=== PATIENT | male | born 1945 | race Caucasian/White ===

== ENCOUNTER 2017-11-24 09:26 | Outpatient (RCR) | payer MEDICARE, SELFPAY ==
[2017-11-24 10:19] LABS: International Normalized Ratio 2.2; Prothrombin Time (Protime)PT. 23.9 SECONDS (11.7-14.9)
== END 2017-11-24 15:00 | disposition home or self-care (01) ==
LOC: MTLAB 09:26
PROVIDERS: Family Provider Family Medicine; PCP Family Medicine; Visit Provider Internal Medicine Cardiovascular Disease
DX: I48.1 Persistent atrial fibrillation (principal); Z79.01 Long term (current) use of anticoagulants
CPT/HCPCS: 36415; 85610

== ENCOUNTER 2018-01-08 11:58 | Outpatient (RCR) | payer MEDICARE, SELFPAY ==
[2018-01-08 13:53] LABS: International Normalized Ratio 2.4; Prothrombin Time (Protime)PT. 26.3 SECONDS (11.7-14.9)
== END 2018-01-08 12:00 | disposition home or self-care (01) ==
LOC: MTLAB 11:58
PROVIDERS: Family Provider Family Medicine; PCP Family Medicine; Visit Provider Internal Medicine Cardiovascular Disease
DX: I48.1 Persistent atrial fibrillation (principal); Z79.01 Long term (current) use of anticoagulants
CPT/HCPCS: 36415; 85610

== ENCOUNTER → 2018-01-24 10:05 | Outpatient (CLI) | payer MEDICARE, SELFPAY ==
[2018-01-24 12:48] LABS: T4 Total, Thyroxin 8.4 ug/dL (4.5-12.1); Thyroid Stim Hormone (TSH) 3.74 uIU/mL (0.358-3.74)
== END ==
PROVIDERS: Family Provider Family Medicine; PCP Family Medicine; Visit Provider Family Medicine
DX: E03.9 Hypothyroidism, unspecified (principal)
CPT/HCPCS: 36415; 84436; 84443

== ENCOUNTER → 2018-01-29 12:58 | Outpatient (CLI) | payer MEDICARE, SELFPAY ==
--- NOTE | 2018-01-29 12:59 | ECHOD_ITS ---
Reason For Study: CAD/ASHD Procedure This was a 2D Doppler, Color Flow transthoracic echocardiogram. Exam performed in department. Left Ventricle Normal LV size. Mild concentric left ventricular hypertrophy. Left ventricular systolic function is normal. The estimated ejection fraction is 55 %. No regional wall motion abnormalities noted. Right Ventricle Normal RV size. Normal systolic function. Atria The left atrium is mildly enlarged. Normal right atrium. Mitral Valve Normal mitral valve. Mild (1+) eccentric mitral valve insufficiency. Tricuspid Valve Normal tricuspid valve. Mild (1+) tricuspid valve insufficiency. Pulmonary artery systolic pressure is 38 mmHg. Aortic Valve Trisinus/trileaflet aortic valve. Mild focal aortic valve calcification. Pulmonic Valve Normal pulmonic valve. Great Vessels Normal aortic root. The pulmonary artery is normal size. Normal inferior vena cava. Pericardium/Pleural No pericardial effusion. MMode/2D Measurements & Calculations LVIDd: 3.8 cm IVSd: 1.2 cm Ao root diam: 3.2 cm LVIDs: 2.5 cm LVPWd: 1.5 cm RVDd: 2.9 cm FS: 34.5 % LAV(MOD-bp): 61.4 ml EDV(MOD-sp4): 92.6 ml SV(MOD-sp4): 55.5 ml LAV(MOD-bp) Indexed: 30.7 ml/m2 ESV(MOD-sp4): 37.2 ml LAV(MOD-sp2): 51.8 ml EF(MOD-sp4): 59.9 % LAV(MOD-sp4): 69.4 ml LA A4 area: 21.9 cm2 RA A4 area: 12.0 cm2 Doppler Measurements & Calculations MV E max meagan: 115.1 cm/sec Ao V2 max: 154.2 cm/sec LV V1 max: 80.8 cm/sec Ao max P.5 mmHg LV V1 max P.6 mmHg PA V2 max: 93.6 cm/sec TR max meagan: 296.4 cm/sec TR max P.1 mmHg Interpretation Summary Normal LV size. Mild concentric left ventricular hypertrophy. Left ventricular systolic function is normal. The estimated ejection fraction is 55 %. Mild (1+) tricuspid valve insufficiency. Pulmonary artery systolic pressure is 38 mmHg. Mild focal aortic valve calcification. Ordering Physician: Ryan Zelaya Referring Physician: Ryan Zelaya Performed By: Antonietta Beltran RDCS
== END ==
PROVIDERS: Family Provider Family Medicine; PCP Family Medicine; Visit Provider Internal Medicine Cardiovascular Disease
DX: I25.10 Atherosclerotic heart disease of native coronary artery without angina pectoris (principal); I48.2 Chronic atrial fibrillation
CPT/HCPCS: 93225; 93226; 93306

== ENCOUNTER 2018-02-14 08:42 | Outpatient (RCR) | payer MEDICARE, SELFPAY ==
[2018-02-14 10:23] LABS: International Normalized Ratio 2.1; Prothrombin Time (Protime)PT. 23.5 SECONDS (11.7-14.9)
== END 2018-02-14 09:00 | disposition home or self-care (01) ==
LOC: MTLAB 08:42
PROVIDERS: Family Provider Family Medicine; PCP Family Medicine; Visit Provider Internal Medicine Cardiovascular Disease
DX: I48.2 Chronic atrial fibrillation (principal); Z79.01 Long term (current) use of anticoagulants
CPT/HCPCS: 36415; 85610

== ENCOUNTER 2018-03-26 10:57 | Outpatient (RCR) | payer MEDICARE, SELFPAY ==
--- NOTE | 2018-03-26 10:57 | DT_ITS ---
This patient was seen during an EMR downtime March 19, 2018 - March 26, 2018. This patient may have a combination of paper and electronic documentation or all paper documentation. All documentation is viewable within the e-chart portion of [id number] for each patient visit.
[2018-03-26 12:34] LABS: International Normalized Ratio 2.5; Prothrombin Time (Protime)PT. 27.1 SECONDS (11.7-14.9)
== END 2018-03-26 12:00 | disposition home or self-care (01) ==
LOC: MTLAB 10:57
PROVIDERS: Family Provider Family Medicine; PCP Family Medicine; Visit Provider Internal Medicine Cardiovascular Disease
DX: I48.91 Unspecified atrial fibrillation (principal)
CPT/HCPCS: 36415; 85610

== ENCOUNTER 2018-04-20 07:16 | Outpatient (RCR) | payer MEDICARE, SELFPAY ==
[2018-04-20 10:14] LABS: International Normalized Ratio 2.6; Prothrombin Time (Protime)PT. 27.8 SECONDS (11.7-14.9)
== END 2018-04-20 09:00 ==
LOC: MTLAB 07:16
PROVIDERS: Family Provider Family Medicine; PCP Family Medicine; Visit Provider Internal Medicine Cardiovascular Disease
DX: I48.1 Persistent atrial fibrillation (principal)
CPT/HCPCS: 36415; 85610

== ENCOUNTER → 2018-05-16 08:33 | Outpatient (CLI) | payer MEDICARE, SELFPAY ==
[2018-05-16 10:35] LABS: International Normalized Ratio 2.3
== END ==
PROVIDERS: Family Provider Family Medicine; PCP Family Medicine; Visit Provider Internal Medicine Cardiovascular Disease
DX: I48.2 Chronic atrial fibrillation (principal); Z79.01 Long term (current) use of anticoagulants
CPT/HCPCS: 36415; 85610

== ENCOUNTER → 2018-06-07 12:13 | Outpatient (CLI) | payer MEDICARE, SELFPAY ==
[2018-06-07 13:51] LABS: Hematocrit 46.7 % (40-54); Hemoglobin 16.2 g/dl (13.0-16.5); Mean Corp Hgb Conc 34.7 g/gl (32-36); Mean Corpuscular Hgb 34.2 pg (27.0-32.0); Mean Corpuscular Volume 98.7 fL (80-94); Mean Platelet Vol. 10.7 fl (6.2-12.0); Platelet Count 122 K/mm3 (150-450); RBC Distribution Width CV 14.4 % (11.6-14.6); RBC Distribution Width SD 51.8 fl (35.1-43.9); Red Blood Count 4.73 M/mm3 (4.6-6.2); Scan Indicated on CBC? Y/N NO; White Blood Count 4.8 K/mm3 (4.4-11.0)
[2018-06-07 14:18] LABS: Homocysteine 9.6 umol/L (3.2-10.7)
[2018-06-07 14:19] LABS: ALB/GLOB Ratio 1.2 RATIO (0.9-2.4); AST(SGOT) 28 U/L (15-37); Alanine Aminotransfer ALT/SGPT 29 U/L (16-61); Albumin, Serum 3.6 g/dL (3.2-5.0); Alkaline Phosphatase 40 U/L (45-117); Anion Gap 10 (5-15); BUN 17 mg/dL (7-18); BUN/Creat Ratio 12.8 RATIO (10-20); CRP < 2.90 mg/L (0.0-3.0); Calcium,Total 8.3 mg/dL (8.5-10.1); Chloride 103 mmol/L (98-107); Cholesterol 174 mg/dL (200); Creatinine, Serum 1.33 mg/dL (0.70-1.30); EST Glomerular Filtration Rate 56 mL/min (>60); Est Glom Filt Rate - Afr Amer 68 mL/min (>60); Globulin 3.1 g/dL (2.2-4.2); Glucose 82 mg/dL (74-106); High Density Lipoprotein 45 mg/dL; PSA,Total - Annual Screen 0.46 ng/mL (0.00-4.00); Potassium 4.2 mmol/L (3.5-5.1); Prolactin 6.1 ng/mL; Protein, Total 6.7 g/dL (6.4-8.2); Sodium Level 135 mmol/L (136-145); T4 Total, Thyroxin 6.9 ug/dL (4.5-12.1); Thyroid Stim Hormone (TSH) 1.93 uIU/mL (0.358-3.74); Triglycerides 62 mg/dL; Very Low Density Lipoprotein 12 mg/dL (5-40)
[2018-06-08 10:21] LABS: Progesterone Level 1.34 ng/mL (See Comment); T3 Total - Triiodothyronine 0.64 ng/mL (0.6-1.81); Vitamin D,25 Hydroxy 30.5 ng/mL (29.95-100.01)
[2018-06-11 22:08] LABS: DHEA Sulfate 184.5 ug/dL (30.9-295.6); Estrogen, Total, Serum 70 pg/mL (40-115)
[2018-06-12 10:32] LABS: Serotonin, Serum 118 ng/mL (21-321)
== END ==
LOC: MTLAB 13:15 → LAB 13:15
PROVIDERS: Family Provider Family Medicine; PCP Family Medicine
DX: E29.1 Testicular hypofunction (principal); E56.9 Vitamin deficiency, unspecified; E03.9 Hypothyroidism, unspecified; Z12.5 Encounter for screening for malignant neoplasm of prostate
CPT/HCPCS: 36415; 80053; 80061; 82306; 82533; 82627; 82672; 83090; 84144; 84146; 84153; 84260; 84403; 84436; 84443; 84480; 85027; 86140; 82626; G0103

== ENCOUNTER 2018-06-20 10:18 | Outpatient (RCR) | payer MEDICARE, SELFPAY ==
[2018-06-20 12:43] LABS: International Normalized Ratio 2.7; Prothrombin Time (Protime)PT. 28.9 SECONDS (11.7-14.9)
== END 2018-06-20 11:00 | disposition home or self-care (01) ==
LOC: MTLAB 10:18
PROVIDERS: Family Provider Family Medicine; PCP Family Medicine; Visit Provider Internal Medicine Cardiovascular Disease
DX: I48.1 Persistent atrial fibrillation (principal)
CPT/HCPCS: 36415; 85610

== ENCOUNTER 2018-07-18 09:32 | Outpatient (RCR) | payer MEDICARE, SELFPAY | END 2018-07-18 11:00 | disposition home or self-care (01) | LOC: MTLAB 09:32 | PROVIDERS: Family Provider Family Medicine; PCP Family Medicine; Referring Provider Internal Medicine Cardiovascular Disease; Visit Provider Internal Medicine Cardiovascular Disease | DX: I48.1 Persistent atrial fibrillation (principal) | CPT/HCPCS: 36415; 85610 ==

== ENCOUNTER 2018-08-22 09:18 | Outpatient (RCR) | payer MEDICARE, SELFPAY ==
[2018-08-22 10:19] LABS: International Normalized Ratio 2.7; Prothrombin Time (Protime)PT. 28.8 SECONDS (11.7-14.9)
== END 2018-08-22 10:00 | disposition home or self-care (01) ==
LOC: MTLAB 09:18
PROVIDERS: Family Provider Family Medicine; PCP Family Medicine; Referring Provider Internal Medicine Cardiovascular Disease; Visit Provider Internal Medicine Cardiovascular Disease
DX: I48.1 Persistent atrial fibrillation (principal)
CPT/HCPCS: 36415; 85610

== ENCOUNTER 2018-10-01 09:46 | Outpatient (RCR) | payer MEDICARE, SELFPAY ==
[2018-10-01 12:17] LABS: International Normalized Ratio 1.9; Prothrombin Time (Protime)PT. 21.5 SECONDS (11.7-14.9)
--- OUTSIDE RECORDS SUMMARY | 2019-01-02 22:12 | XMS RPT_ITS ---
:1945 Author Organization [place] Support Name Relationship Address Phone JUSTIN THOMAS Unavailable [address] + [place] [address] KIARA MODESTO K Unavailable Unavailable + R Unavailable Unavailable Unavailable JUSTIN THOMAS Unavailable [address] + [place] [address] KIARA, MODESTO K Unavailable Unavailable + R Unavailable Unavailable Unavailable JUSTIN THOMAS Unavailable [address] + [place] [address] KIARA MODESTO K Unavailable Unavailable + R Unavailable Unavailable Unavailable JUSTIN THOMAS Unavailable [address] + [place] [address] KIARA MODESTO K Unavailable Unavailable + R Unavailable Unavailable Unavailable JUSTIN THOMAS Unavailable [address] + [place] [address] KIARA MODESTO K Unavailable Unavailable + R Unavailable Unavailable Unavailable JUSTIN THOMAS Unavailable [address] + [place] [address] KIARA MODESTO K Unavailable Unavailable + R Unavailable Unavailable Unavailable JUSTIN THOMAS Unavailable [address] + [place] [address] KIARA, MODESTO K Unavailable Unavailable + R Unavailable Unavailable Unavailable JUSTIN THOMAS Unavailable [address] + [place] [address] R Unavailable Unavailable Unavailable THOMAS, JUSTIN Unavailable [address] + [place] [address] MODESTO CRAIG Unavailable Unavailable + R Unavailable Unavailable Unavailable THOMAS, JUSTIN Unavailable [address] + [place] [address] R Unavailable Unavailable Unavailable THOMAS, JUSTIN Unavailable [address] + [place] [address] R Unavailable Unavailable Unavailable THOMAS, JUSTIN Unavailable [address] + [place] [address] R Unavailable Unavailable Unavailable THOMAS, JUSTIN Unavailable [address] + [place] [address] R Unavailable Unavailable Unavailable THOMAS, JUSTIN Unavailable [address] + [place] [address] R Unavailable Unavailable Unavailable THOMAS, JUSTIN Unavailable [address] + [place] [address] R Unavailable Unavailable Unavailable THOMAS, JUSTIN Unavailable [address] + [place] [address] R Unavailable Unavailable Unavailable Care Team Providers Name Role Phone Garcia, Ryan Attending Unavailable Garcia, Galata Referring Unavailable Jolliff, Dorinda Primary Care Unavailable Garcia, Galata Attending Unavailable Garcia, Ryan Referring Unavailable Jolliff, Dorinda Primary Care Unavailable Garcia, Ryan Attending Unavailable Garcia, Galata Referring Unavailable Jolliff, Dorinda Primary Care Unavailable Garcia, Ryan Attending Unavailable Garcia, Ryan Referring Unavailable Jolliff, Dorinda Primary Care Unavailable Garcia, Galata Attending Unavailable Garcia, Galata Referring Unavailable Jolliff, Dorinda Primary Care Unavailable Jolliff, Dorinda Attending Unavailable Jolliff, Dorinda Primary Care Unavailable Garcia, Ryan Attending Unavailable Garcia, Ryan Attending Unavailable Garcia, Galata Referring Unavailable Jolliff, Dorinda Primary Care Unavailable Anish Limon Attending Unavailable Jolliff, Dorinda Referring Unavailable Garcia, Galata Attending Unavailable Garcia, Galata Referring Unavailable Jolliff, Dorinda Primary Care Unavailable Garcia, Ryan Attending Unavailable Garcia, Galata Referring Unavailable Jolliff, Dorinda Primary Care Unavailable Garcia, Ryan Attending Unavailable Garcia, Galata Referring Unavailable Jolliff, Dorinda Primary Care Unavailable DORINDA ROSE Attending Unavailable DORINDA ROSE Referring Unavailable Jolliff, Dorinda Primary Care Unavailable Garcia, Galata Attending Unavailable Garcia, Ryan Referring Unavailable Jolliff, Dorinda Primary Care Unavailable Garcia, Galata Attending Unavailable Garcia, Ryan Referring Unavailable Jolliff, Dorinda Primary Care Unavailable Garcia, Ryan Attending Unavailable Garcia, Galata Referring Unavailable Jolliff, Dorinda Primary Care Unavailable NETZLEY, GALE G Referring Unavailable CRUZ, JANELL (LOG STACKER OPERATOR) Attending Unavailable JOLLIFF, DORINDA SILVIANO Referring Unavailable NETZLEY, GALE G Referring Unavailable Jolliff, Dorinda Primary Care Unavailable NETZLEY, GALE G Referring Unavailable Jolliff, Dorinda Primary Care Unavailable CRUZDEEPAJANELL L Attending Unavailable Jolliff, Dorinda Referring Unavailable Jolliff, Dorinda Primary Care Unavailable PROBLEMS PROBLEMS DATE TYPE CONDITION / CODE ATTENDING STATUS SOURCE 10/15/2018 Unknown I48.1 - Persistent Garcia, Ryan Active [facility] / I48.1(ICD-10) Hospital Repository 10/15/2018 Unknown I48.91 - Unspecified Garcia, Galata Active [facility] / I48.91(ICD-10) Hospital Repository 07/06/2018 Unknown 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 / Community E29.1(ICD-10) Hospital Repository 04/13/2018 Unknown I48.2 - Chronic Garcia, Galata Active [facility] fibrillation [facility] / I48.2(ICD-10) Hospital Repository 03/14/2018 Active Other specified ANTHONY, Active [facility] postprocedural JANELL (LOG STACKER OPERATOR) Clinic Other states / [place] Z98.890(ICD-10) Repository 03/14/2018 Active Encounter for ANTHONY, Active [facility] screening for other JANELL (LOG STACKER OPERATOR) Clinic Other disorder / [place] Z13.89(ICD-10) Repository 03/14/2018 Active Encounter for ANTHONY Active [facility] screening for JANELL (LOG STACKER OPERATOR) Clinic Other cardiovascular [place] disorders / Repository Z13.6(ICD-10) 02/27/2018 Active Occlusion and NA Active [facility] stenosis of right Clinic Other carotid artery / [place] I65.21(ICD-10) Repository 02/27/2018 Admitting Unknown / NA Active [facility] UNK(Unknown) [facility] Repository 03/15/2018 Unknown 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 [address] [facility] [place], [place], [id number] PROTHROMBIN TIME W/INR Collected: 10/01/2018 Status: F Source: [place] 9:53 AM [facility] REPOSITORY TYPE CODE TESTS RESULT OUT OF RANGE REFERENCE UNITS LAB L300.4150 11.7-14.9 SECONDS High PROTIME 21.5 LAB L300.4200 Normal INR 1.9 Performed By: #### L300.3900 #### [facility] [facility] [place], [place], [address] PROTHROMBIN TIME W/INR Collected: 08/22/2018 Status: F Source: [place] 9:21 AM [facility] REPOSITORY TYPE CODE TESTS RESULT OUT OF RANGE REFERENCE UNITS LAB L300.4150 11.7-14.9 SECONDS High PROTIME 28.8 LAB L300.4200 Normal INR 2.7 Performed By: #### L300.3900 #### [facility] [address] [facility] [place], [place], [address] PROTHROMBIN TIME W/INR Collected: 07/18/2018 Status: F Source: [place] 9:36 AM [facility] REPOSITORY TYPE CODE TESTS RESULT OUT OF RANGE REFERENCE UNITS LAB L300.4150 11.7-14.9 SECONDS High PROTIME 23.0 LAB L300.4200 Normal INR 2.0 Performed By: #### L300.3900 #### [facility] [address] [place], [place], [address] PROTHROMBIN TIME W/INR Collected: 06/20/2018 Status: F Source: [place] 10:25 AM [facility] REPOSITORY TYPE CODE TESTS RESULT OUT OF RANGE REFERENCE UNITS LAB L300.4150 11.7-14.9 SECONDS High PROTIME 28.9 LAB L300.4200 Normal INR 2.7 Performed By: #### L300.3900 #### [facility] [address] [place], [address] CBC-COMPLETE BLOOD CNT Collected: 06/07/2018 Status: F Source: [place] NO DIFF 12:17 PM [facility] REPOSITORY TYPE CODE TESTS RESULT OUT OF RANGE REFERENCE UNITS LAB L100.1000 4.4-11.0 K/mm3 Normal WBC 4.8 LAB L100.1200 4.6-6.2 M/mm3 Normal RBC 4.73 LAB L100.1300 13.0-16.5 g/dl Normal HGB 16.2 LAB L100.1400 40-54 % Normal HCT 46.7 LAB L100.1500 80-94 fL High MCV 98.7 LAB L100.1600 27.0-32.0 pg High MCH 34.2 LAB L100.1700 32-36 g/gl Normal MCHC 34.7 LAB L100.1810 11.6-14.6 % Normal RDW CV 14.4 LAB L100.1820 35.1-43.9 fl High RDW SD 51.8 LAB L100.1900 150-450 K/mm3 Low PLT 122 LAB L100.2000 6.2-12.0 fl Normal MPV 10.7 Performed By: #### L100.0500 #### [facility] [address] [place], [place], [address] HOMOCYSTEINE Collected: 06/07/2018 Status: F Source: [place] 12:17 PM [facility] REPOSITORY TYPE CODE TESTS RESULT OUT OF REFERENCE UNITS RANGE LAB L503.8001 3.2-10.7 umol/L HOMOCYSTEINE Normal 9.6 Performed By: #### L503.8001 #### [facility] [address] [place], [address] COMPREHENSIVE METABOLIC Collected: 06/07/2018 Status: F Source: [place] CONRAD 12:17 PM [facility] REPOSITORY TYPE CODE TESTS RESULT OUT OF RANGE REFERENCE UNITS LAB L501.0100 74-106 mg/dL Normal GLU 82 Result Comment: Please note revised GLUCOSE reference range effective 2017. LAB L501.1000 7-18 mg/dL Normal BUN 17 LAB L501.1100 0.70-1.30 mg/dL High CREAT,SERUM 1.33 Result Comment: The validity of the calculated GFR AND GFRAA in patients over 70 years has not been determined. Clinical correlation is essential. LAB L501.1110 >60 mL/min Low EST GFR 56 Result Comment: Non- GFR Calc LAB L501.1115 >60 mL/min Normal EST GFR - AA 68 Result Comment: GFR Calc LAB L501.1300 10-20 RATIO Normal BUN/CRE 12.8 LAB L501.1500 6.4-8.2 g/dL T Normal PROT 6.7 LAB L501.1800 3.2-5.0 g/dL Normal ALB 3.6 LAB L501.1950 2.2-4.2 g/dL Normal GLOB 3.1 LAB L501.2000 0.9-2.4 RATIO Normal A/G 1.2 LAB L501.2200 8.5-10.1 mg/dL Low CA 8.3 LAB L501.4100 15-37 U/L Normal AST 28 LAB L501.4305 45-117 U/L Low ALK P 40 LAB L501.4405 16-61 U/L Normal ALT 29 LAB L501.4600 0.20-1.00 mg/dL T Normal BILI 0.60 LAB L501.5300 136-145 mmol/L Low NA 135 LAB L501.5600 3.5-5.1 mmol/L K Normal 4.2 LAB L501.5900 98-107 mmol/L CL Normal 103 LAB L501.6100 21.0-32.0 mmol/L Normal CO2 22.0 LAB L501.6200 5-15 Normal GAP 10 Performed By: #### L500.4050, L500.4100, L501.6710, L501.9310, L501.9520, L501.9910, L3100.5420 #### [facility] [address] [place], [place], [id number] LIPID PROFILE Collected: 06/07/2018 Status: F Source: [place] 12:17 PM [facility] REPOSITORY TYPE CODE TESTS RESULT OUT OF RANGE REFERENCE UNITS LAB L501.4900 200 mg/dL Normal CHOL 174 Result Comment: <200 mg/dL Desirable 200-240 mg/dL Borderline >240 mg/dL High Risk LAB L501.5000 mg/dL Normal TRIG 62 Result Comment: The drugs N-Acetylcysteine and Metamizole may falsely depress this assay. Serum Triglycerides Reference Interval Normal <150 mg/dL Borderline high 150 - 199 mg/dL High 200 - 499 mg/dL Very High > or = 500 mg/dL LAB L501.6400 mg/dL Normal HDL 45 Result Comment: The drugs N-Acetylcysteine and Metamizole may falsely depress this assay. Reference Range HDL <40 mg/dL Low HDL Cholesterol HDL >or= 60 mg/dL High HDL Cholesterol LAB L501.6500 0-130 mg/dL Normal LDL 117 LAB L501.6600 5-40 mg/dL Normal VLDL 12 Performed By: #### L500.4050, L500.4100, L501.6710, L501.9310, L501.9520, L501.9910, L3100.5420 #### [facility] [address] [place], [address] CRP Collected: 06/07/2018 Status: F Source: [place] 12:17 PM [facility] REPOSITORY TYPE CODE TESTS RESULT OUT OF RANGE REFERENCE UNITS LAB L501.6710 0.0-3.0 mg/L Normal < 2.90 C-REACTIVE PROT Result Comment: C-Reactive Protein (CRP) provides useful information for the diagnosis, therapy and monitoring of inflammatory processes and associated diseases. For the evaluation of Relative Risk for Cardiovascular Disease, a High Sensitivity CRP (HSCRP) should be ordered. Performed By: #### L500.4050, L500.4100, L501.6710, L501.9310, L501.9520, L501.9910, L3100.5420 #### [facility] [address] [place], [address] T4 TOTAL, THYROXIN Collected: 06/07/2018 Status: F Source: [place] 12:17 PM [facility] REPOSITORY TYPE CODE TESTS RESULT OUT OF RANGE REFERENCE UNITS LAB L501.9310 4.5-12.1 ug/dL T4 Normal THYROXIN 6.9 Performed By: #### L500.4050, L500.4100, L501.6710, L501.9310, L501.9520, L501.9910, L3100.5420 #### [facility] [address] [place], [address] THYROID STIM HORMONE Collected: 06/07/2018 Status: F Source: [place] (TSH) 12:17 PM [facility] REPOSITORY TYPE CODE TESTS RESULT OUT OF RANGE REFERENCE UNITS LAB L501.9520 0.358-3.74 uIU/mL Normal TSH 1.93 Performed By: #### L500.4050, L500.4100, L501.6710, L501.9310, L501.9520, L501.9910, L3100.5420 #### [facility] [address] [place], [place], [address] PSA,TOTAL - ANNUAL Collected: 06/07/2018 Status: F Source: [place] SCREEN 12:17 PM [facility] REPOSITORY TYPE CODE TESTS RESULT OUT OF RANGE REFERENCE UNITS LAB L501.9910 0.00-4.00 ng/mL Normal PSA,TOT 0.46 SCREEN Result Comment: This test was performed using the TPSA assay method for the [employer] chemistry system. Values obtained with different assay methods cannot be used interchangably. When changing PSA assays in the course of monitoring a patient, additional sequential testing should be carried out to confirm baseline values. Performed By: #### L500.4050, L500.4100, L501.6710, L501.9310, L501.9520, L501.9910, L3100.5420 #### [facility] [address] [place], [address] PROLACTIN Collected: 06/07/2018 Status: F Source: [place] 12:17 PM [facility] REPOSITORY TYPE CODE TESTS RESULT OUT OF RANGE REFERENCE UNITS LAB L3100.5420 ng/mL Normal PROLACTIN 6.1 Result Comment: NORMAL REFERENCE RANGES FEMALE NON- 2.2 - 30.3 ng/mL 8.1 - 347.6 ng/mL POST-MENOPAUSAL 0.7 - 31.5 ng/mL MALE 2.5 - 17.4 ng/mL NEW TEST METHOD AND REFERENCE RANGES MARCH 05, 2012 Performed By: #### L500.4050, L500.4100, L501.6710, L501.9310, L501.9520, L501.9910, L3100.5420 #### [facility] [address] [place], [address] T3 TOTAL - TRIIODOTHYRONINE Collected: 06/07/2018 Status: F Source: [place] 12:17 PM [facility] REPOSITORY Order Comment: BASELINE OR POST MEDICATION STIMULATION?: Baseline TYPE CODE TESTS RESULT OUT OF RANGE REFERENCE UNITS LAB L501.9186 0.6-1.81 ng/mL Normal T3 Total 0.64 Performed By: #### L501.9186, L506.1000, L509.3000, L509.4001, L509.6000 #### [facility] [address] [place], [address] VITAMIN D,25 HYDROXY Collected: 06/07/2018 Status: F Source: [place] 12:17 PM [facility] REPOSITORY Order Comment: BASELINE OR POST MEDICATION STIMULATION?: Baseline TYPE CODE TESTS RESULT OUT OF RANGE REFERENCE UNITS LAB L506.1000 29.95-100.01 ng/mL Normal Vitamin D 30.5 25-OH Result Comment: Vitamin D 25(OH) Status Range Deficiency <20 ng/mL (50nmol/L) Insuffciency 20 - 30 ng/mL (50 - 75 nmol/L) Sufficiency 30 - 100 ng/mL (75 - 250 nmol/L) Toxicity >100 ng/mL (>250 nmol/L) Performed By: #### L501.9186, L506.1000, L509.3000, L509.4001, L509.6000 #### [facility] [address] [place], [address] TESTOSTERONE, SERUM TOTAL Collected: 06/07/2018 Status: F Source: [place] 12:17 PM [facility] REPOSITORY Order Comment: BASELINE OR POST MEDICATION STIMULATION?: Baseline TYPE CODE TESTS RESULT OUT OF REFERENCE UNITS RANGE LAB L509.3000 ng/dL Testosterone Normal 850.60 Result Comment: NORMAL REFERENCE RANGES MALE AGE <50 123.06 - 813.86 ng/dL MALE AGE >50 89.98 - 780.10 ng/dL FEMALE PREMENOPAUSE AGE 21 - 60 9.01 - 47.94 ng/dL FEMALE POSTMENOPAUSE AGE 45 - 89 <7.00 - 45.62 ng/dL REFERENCE RANGE AND METHODOLOGY CHANGED 10/04/2017 Performed By: #### L501.9186, L506.1000, L509.3000, L509.4001, L509.6000 #### [facility] [address] [place], [address] PROGESTERONE LEVEL Collected: 06/07/2018 Status: F Source: [place] 12:17 [facility] REPOSITORY Order Comment: BASELINE OR POST MEDICATION STIMULATION?: Baseline TYPE CODE TESTS RESULT OUT OF REFERENCE UNITS RANGE LAB L509.4001 See Comment ng/mL Progesterone Normal 1.34 Result Comment: Progesterone Reference Table: UNITS Female: Follicular 0.15 - 1.40 ng/mL Luteal 3.34 - 25.56 ng/mL Mid-luteal 4.44 - 28.03 ng/mL Postmenopausal 0.0 - 0.73 ng/mL : 1st Trimester 11.22 - 90.00 ng/mL 2nd Trimester 25.55 - 89.40 ng/mL 3rd Trimester 48.40 -422.50 ng/mL Performed By: #### L501.9186, L506.1000, L509.3000, L509.4001, L509.6000 #### [facility] [address] [place], [address] CORTISOL SERUM Collected: 06/07/2018 Status: F Source: [place] 12:17 PM [facility] REPOSITORY Order Comment: BASELINE OR POST MEDICATION STIMULATION?: Baseline TYPE CODE TESTS RESULT OUT OF RANGE REFERENCE UNITS LAB L509.6000 3.09-22.40 ug/dL Normal CORTISOL 7.50 Result Comment: Adult (AM) 4.30 - 22.40 ug/dL Adult (PM) 3.09 - 16.66 ug/dL Performed By: #### L501.9186, L506.1000, L509.3000, L509.4001, L509.6000 #### [facility] [place], [address] DHEA SULFATE Collected: 06/07/2018 Status: F Source: [place] 12:17 PM [facility] REPOSITORY Order Comment: Has Patient had Radioactive Injection for X-ray?: N TYPE CODE TESTS RESULT OUT OF RANGE REFERENCE UNITS LAB L3300.1500 30.9-295.6 ug/dL Normal DHEA SULF 184.5 4020 Performed By: #### L3300.1500, L3400.0200, L3800.1800 #### [facility] (refer to report for specific site) refer to report for address and phone number ESTROGEN, TOTAL, SERUM Collected: 06/07/2018 Status: F Source: [place] 12:17 PM [facility] REPOSITORY Order Comment: Has Patient had Radioactive Injection for X-ray?: N TYPE CODE TESTS RESULT OUT OF RANGE REFERENCE UNITS LAB L3400.0200 40-115 pg/mL Normal ESTROGEN 4549 70 Performed By: #### L3300.1500, L3400.0200, L3800.1800 #### [facility] (refer to report for specific site) refer to report for address and phone number SEROTONIN, SERUM Collected: 06/07/2018 Status: F Source: [place] 12:17 PM [facility] REPOSITORY Order Comment: Has Patient had Radioactive Injection for X-ray?: N TYPE CODE TESTS RESULT OUT OF RANGE REFERENCE UNITS LAB L3800.1800 21-321 ng/mL Normal SEROTONIN 118 Result Comment: Performed at: [facility] [address] [id number] Regional Merchandising Manager: Farhat Vazquez PhD, Phone: [phone] Performed at: [facility] [address] [id number] Regional Merchandising Manager: Ethan Zimmerman MD, Phone: [phone] Performed By: #### L3300.1500, L3400.0200, L3800.1800 #### [facility] (refer to report for specific site) refer to report for address and phone number MISCELLANEOUS LAB Collected: 06/07/2018 Status: F Source: [place] PROCEDURE 12:17 PM [facility] REPOSITORY Order Comment: Test(s) Ordered: #[id number] PREGNENOLONE SERUM 2.5ML FREEZE TYPE CODE TESTS RESULT OUT OF RANGE REFERENCE UNITS LAB L801.1541 Normal [facility] [place] Result Comment: TEST RESULT UNITS REFERENCE INTERVAL Pregnenolone, MS 147 ng/dL Adults: <151 TESTING PERFORMED AT [facility]. ORIGINAL REPORT ON FILE IN LAB CONTAINS ADDITIONAL TEST SITE INFORMATION. Performed By: #### L801.1541 #### [facility] [address] [place], [place], [address] PROTHROMBIN TIME W/INR Collected: 05/16/2018 Status: F Source: [place] 8:35 AM [facility] REPOSITORY Order Comment: Comments: STANDING ORDER Comments: STANDING ORDER TYPE CODE TESTS RESULT OUT OF RANGE REFERENCE UNITS LAB L300.4150 11.7-14.9 SECONDS High PROTIME 25.0 LAB L300.4200 Normal INR 2.3 Performed By: #### L300.3900 #### [facility] [address] [place], [address] PROTHROMBIN TIME W/INR Collected: 04/20/2018 Status: F Source: [place] 7:34 AM [facility] REPOSITORY TYPE CODE TESTS RESULT OUT OF RANGE REFERENCE UNITS LAB L300.4150 11.7-14.9 SECONDS High PROTIME 27.8 LAB L300.4200 Normal INR 2.6 Performed By: #### L300.3900 #### [facility] [address] [place], [address] DOWNTIME REPORT Observed: 04/05/2018 Status: F Source: [place] 12:24 PM [facility] REPOSITORY [facility] Medical Records Department [address] [place] [address] Downtime Report MR#: [id number] Acct: [id number] Name: GALE THOMAS Rep #: [id number] : 1945 72 From: Karan Shaffer PCP: Dorinda Caballero MD Status: REG RCR This patient was seen during an EMR downtime March 19, 2018 - March 26, 2018. This patient may have a combination of paper and electronic documentation or all paper documentation. All documentation is viewable within the e-chart portion of [employer] for each patient visit. PROTHROMBIN TIME W/INR Collected: 03/26/2018 Status: F Source: [place] 11:00 AM [facility] REPOSITORY TYPE CODE TESTS RESULT OUT OF RANGE REFERENCE UNITS LAB L300.4150 11.7-14.9 SECONDS High PROTIME 27.1 LAB L300.4200 Normal INR 2.5 Performed By: #### L300.3900 #### [facility] [address] [place], [address] PROGRESS Observed: 03/14/2018 Status: COMPLETED Source: [place] 9:51 AM CLINIC OTHER CAMPUS REPOSITORY HNO ID: [id number] Author: Janell Cruz Service: (none) Author Type: Nurse Practitioner Type: Progress Notes Filed: 03/14/2018 10:08 AM Note Text: Gale Thomas is a 72 year old male who underwent left carotid endarterectomy with bovine patch angioplasty [place] [address] [place]. He remains asymptomatic, with no s/s of TIA or stroke, including amaurosis fugax, slurred speech, facial drooping, or weakness in an extremity. He is compliant with his medication, including daily aspirin therapy (no statin), and he returns today for routine noninvasive follow-up. PAST MEDICAL HISTORY Diagnosis Date - Atrial fibrillation (HCC) - Carotid stenosis - Dyspnea - Hypertensive disorder - Stenosis of right carotid artery 03/21/2017 PAST SURGICAL HISTORY Procedure Laterality Date - CAROTID ENDARTERECTOMY Left 2006 Current Outpatient Prescriptions on File Prior to Visit: levothyroxine (SYNTHROID) 50 mcg tablet Take 50 mcg by mouth once daily. warfarin (COUMADIN) 1 mg tablet Take 1 mg by mouth once daily. warfarin (COUMADIN) 6 mg tablet Take 6 mg by mouth once daily. 8mg daily Monday and 9mg No current facility-administered medications on file prior to visit. ALLERGIES No Known Allergies PHYSICAL EXAM: General Appearance: Well appearing, alert, in no acute distress, well-hydrated, well nourished. Skin: Skin color, texture, turgor normal, no suspicious rashes or lesions. Head: Normocephalic, no masses, lesions, tenderness or abnormalities. Eyes: Anicteric sclera. Extraocular movements are intact. Ears: External ears normal, hearing is adequate. Lungs: Breathing is easy and unlabored. Extremities: No deformities, edema, skin discoloration, clubbing or cyanosis. Good capillary refill. Musculoskeletal: No joint swelling, deformity, or tenderness. Neurologic: Gait normal. Sensation and strength grossly intact. Current CTA neck findings: 02/27/2018 IMPRESSION: 1. ?Stenosis at the level of the right carotid bifurcation and proximal internal carotid artery estimated to measure approximately 70% as described above. 2. ?Tandem approximately 50% stenoses involving the proximal and distal portions of the vertebral arteries bilaterally as noted. 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 S/S of stroke are reviewed and Mr. Thomas is advised to call 911 should any of these develop for urgent evaluation. Plan: CTA NECK W IVCON; Continue daily asa; Continue to refrain from all nicotine; Continue to stay active and make healthy lifestyle choices. (Z13.89) Screening for nephropathy Comment: N/A Plan: Will check BMP prior to CTA FOLLOW-UP: Mr. Thomas will follow-up in 1 year following repeat testing. He is encouraged to call with any questions, problems, or concerns in the meantime. I spent 25 minutes in the visit, with more than 50% of the total eqst-gy-nvkk time of the visit in counseling/coordination of care. Janell Cruz APRN.CNP CNOV Observed: 03/14/2018 Status: COMPLETED Source: [place] 9:00 AM [facility] OTHER CAMPUS REPOSITORY Office Visit (AGVASACC) GALE THOMAS ([id number]) 1945 M Date Time Provider Department 03/14/18 9:00 AM JANELL CRUZ (LAURA) AGLANDON During your visit today, we recorded the following information about you: Pulse Blood pressure Weight Height 72/minute 120/70 78 kg 1.727 m Janell Cruz APRN.CNP 03/14/2018 10:08 AM Signed Gale Thomas is a 72 year old male who underwent left carotid endarterectomy with bovine patch angioplasty [place] [address] Orlando. He remains asymptomatic, with no s/s of TIA or stroke, including amaurosis fugax, slurred speech, facial drooping, or weakness in an extremity. He is compliant with his medication, including daily aspirin therapy (no statin), and he returns today for routine noninvasive follow-up. PAST MEDICAL HISTORY Diagnosis Date - Atrial fibrillation (HCC) - Carotid stenosis - Dyspnea - Hypertensive disorder - Stenosis of right carotid artery 03/21/2017 PAST SURGICAL HISTORY Procedure Laterality Date - CAROTID ENDARTERECTOMY Left 2006 Current Outpatient Prescriptions on File Prior to Visit: levothyroxine (SYNTHROID) 50 mcg tablet Take 50 mcg by mouth once daily. warfarin (COUMADIN) 1 mg tablet Take 1 mg by mouth once daily. warfarin (COUMADIN) 6 mg tablet Take 6 mg by mouth once daily. 8mg daily Monday and 9mg No current facility-administered medications on file prior to visit. ALLERGIES No Known Allergies PHYSICAL EXAM: General Appearance: Well appearing, alert, in no acute distress, well-hydrated, well nourished. Skin: Skin color, texture, turgor normal, no suspicious rashes or lesions. Head: Normocephalic, no masses, lesions, tenderness or abnormalities. Eyes: Anicteric sclera. Extraocular movements are intact. Ears: External ears normal, hearing is adequate. Lungs: Breathing is easy and unlabored. Extremities: No deformities, edema, skin discoloration, clubbing or cyanosis. Good capillary refill. Musculoskeletal: No joint swelling, deformity, or tenderness. Neurologic: Gait normal. Sensation and strength grossly intact. Current CTA neck findings: 02/27/2018 IMPRESSION: 1. ?Stenosis at the level of the right carotid bifurcation and proximal internal carotid artery estimated to measure approximately 70% as described above. 2. ?Tandem approximately 50% stenoses involving the proximal and distal portions of the vertebral arteries bilaterally as noted. 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 S/S of stroke are reviewed and Mr. Thomas is advised to call 911 should any of these develop for urgent evaluation. Plan: CTA NECK W IVCON; Continue daily asa; Continue to refrain from all nicotine; Continue to stay active and make healthy lifestyle choices. (Z13.89) Screening for nephropathy Comment: N/A Plan: Will check BMP prior to CTA FOLLOW-UP: Mr. Thomas will follow-up in 1 year following repeat testing. He is encouraged to call with any questions, problems, or concerns in the meantime. I spent 25 minutes in the visit, with more than 50% of the total ixij-yf-qqrh time of the visit in counseling/coordination of care. Janell Cruz APRN.LAURA Cruz APRN.LAURA 03/14/2018 10:05 AM Signed You will always be at an increased risk of stroke. Stroke is a medical emergency. Know these warning signs of stroke. Every second counts: Sudden numbness or weakness of the face, arm or leg, especially on one side of the body, Sudden confusion, trouble speaking or understanding, Sudden trouble seeing in one eye or both eyes, Sudden trouble walking, loss of balance or coordination, Sudden severe headache with no known cause. If you or someone with you has one or more of these signs, don't delay! Immediately call 9-1-1, or the emergency medical services (EMS) number so an ambulance (ideally with advanced life support) can be sent for you. Also, check the time so that you will know when the symptoms first appeared. It's very important to take immediate action. Medical treatment may be available if action is taken early enough. Referring Provider: DORINDA ACBALLERO [[id number]] Allergies As of Date: 03/14/2018 (No Known Allergies) Date Reviewed: 03/14/2018 Reviewed by: Janell (Laura) Anthony - Fully Assessed Reason for Visit: Stenosis [1326] Cmt: Gale is here for follow up carotid stenosis. CTA neck done 02/27/18 Primary Visit Diagnosis:Stenosis of right internal carotid artery [I65.21] Other Visit Diagnoses:History of left-sided carotid endarterectomy [Z98.890] Screening for nephropathy [Z13.89] Encounter for screening for cardiovascular disorders [Z13.6] Order(s):CTA NECK W IVCON [[id number]] Order #: [id number] FUTURE iv contrast (will be provided with radiology test)CTA Head/Neck W No IV access, insert saline lock prior to the sedation, infusion, injection for imaging exam. Discontinue saline lock post exam. If Pt. has a central line or IVAD, may access for administration according to line specific nursing protocol. Once exam is complete flush line and de-access according to line specific nursing protocol in the CT contrast administration guidelines link.Disp: 1 EachRfl: 0 Prescriptions as of 03/14/2018 Sig: ASPIRIN 81 MG TABLET,DELAYED * Take 1 tablet by mouth once d* LEVOTHYROXINE 50 MCG TABLET Take 50 mcg by mouth once rebekah* WARFARIN 1 MG TABLET Take 1 mg by mouth once daily. WARFARIN 6 MG TABLET Take 6 mg by mouth once daily* IV CONTRAST (RADIOLOGY PROCED* CTA Head/Neck W No IV access,* Problem List As Of Date 03/14/2018 Noted Resolved Stenosis of right carotid artery [I65.21] INVALID FOR* Other instructions from your clinician: You will always be at an increased risk of stroke. Stroke is a medical emergency. Know these warning signs of stroke. Every second counts: Sudden numbness or weakness of the face, arm or leg, especially on one side of the body, Sudden confusion, trouble speaking or understanding, Sudden trouble seeing in one eye or both eyes, Sudden trouble walking, loss of balance or coordination, Sudden severe headache with no known cause. If you or someone with you has one or more of these signs, don't delay! Immediately call 9-1-1, or the emergency medical services (EMS) number so an ambulance (ideally with advanced life support) can be sent for you. Also, check the time so that you will know when the symptoms first appeared. It's very important to take immediate action. Medical treatment may be available if action is taken early enough. Prescriptions ordered this encounter Disp Refills Start End IV CONTRAST (RADIOLOGY PROCEDURE) 1 Ea* 0 03/14/2018 03/15/2018 Class: In Office Sig: CTA Head/Neck W No IV access, insert saline lock prior to the sedation, infusion, injection for imaging exam. Discontinue saline lock post exam. If Pt. has a central line or IVAD, may access for administration according to line specific nursing protocol. Once exam is complete flush line and de-access according to line specific nursing protocol in the CT contrast administration guidelines link. Disposition: Return in about 1 year (around 03/14/2019). Follow-up and Disposition History Recorded Letter Text Encounter Status:Closed by JANELL CRUZ CNP on 03/14/18 CT ANGIO NECK Observed: 02/27/2018 Status: F Source: [facility] 2:13 PM HEALTH SYSTEM REPOSITORY Performed at [facility] APPROVED BY: Karan Green MD AORTIC ARCH AND CAROTID BIFURCATIONS CTA CT angiographic images were obtained in the region of the aortic arch and carotid bifurcations following the intravenous injection of Omnipaque. The images were reformatted utilizing both conventional and three-dimensional techniques. The study was performed to evaluate previously documented carotid stenosis. CT Dose-Length Product (DLP): 416 mGy*cm CT Dose Reduction Employed: No dose reduction techniques were required. Contrast Dose: 100 mL Omnipaque 350 Serial images redemonstrate extensive atherosclerotic changes at the level of the right carotid bifurcation proximal internal carotid artery. Utilizing NASCET criteria, the maximal stenosis is again es timated to measure approximately 70%. Tandem stenoses measuring approximately 50% identified involving the origins and intracranial portions of the vertebral arteries bilaterally. No significant stenosis is identified involving the origins of the great vessels, common carotid arteries, cervical portions of the internal carotid arteries, or cervical portions of the vertebral arteries. IMPRESSION: 1. Stenosis at the level of the right carotid bifurcation and proximal internal carotid artery estimated to measure approximately 70% as described above. 2. Tandem approximately 50% stenoses involving the proximal and distal portions of the vertebral arteries bilaterally as noted. CREATININE WHOLE BLOOD Collected: 02/27/2018 Status: F Source: [facility] 1:45 PM HEALTH SYSTEM REPOSITORY TYPE CODE TESTS RESULT OUT OF REFERENCE UNITS RANGE LAB PCREA(LOIN 0.6-1.3 mg/dL C) High Creatinine Whole 1.5 Blood Performed By: #### PCREA #### [facility] [address] [address] PROTHROMBIN TIME W/INR Collected: 02/14/2018 Status: F Source: [place] 8:46 AM [facility] REPOSITORY TYPE CODE TESTS RESULT OUT OF RANGE REFERENCE UNITS LAB L300.4150 11.7-14.9 SECONDS High PROTIME 23.5 LAB L300.4200 Normal INR 2.1 Performed By: #### L300.3900 #### [facility] [address] [place], [address] ECHOCARDIOGRAM COMPLETE Observed: 01/29/2018 Status: F Source: [place] 3:45 PM [facility] REPOSITORY [facility] Cardiovascular Services [address] [place] [address] Echo Complete 01/29/18 1306 MR#: [id number] Acct: [id number] Name: GALE THOMAS Rep #: [id number] : 1945 72 From: Ryan Zelaya MD Attending Dr: Ryan Zelaya MD Status: REG CLI Ordering Dr: Ryan Zelaya MD Date: 01/29/18 Location: [facility] Sex: M C Admitted: Reason For Study: CAD/ASHD Procedure This was a 2D Doppler, Color Flow transthoracic echocardiogram. Exam performed in department. Left Ventricle Normal LV size. Mild concentric left ventricular hypertrophy. Left ventricular systolic function is normal. The estimated ejection fraction is 55 %. No regional wall motion abnormalities noted. Right Ventricle Normal RV size. Normal systolic function. Atria The left atrium is mildly enlarged. Normal right atrium. Mitral Valve Normal mitral valve. Mild (1+) eccentric mitral valve insufficiency. Tricuspid Valve Normal tricuspid valve. Mild (1+) tricuspid valve insufficiency. Pulmonary artery systolic pressure is 38 mmHg. Aortic Valve Trisinus/trileaflet aortic valve. Mild focal aortic valve calcification. Pulmonic Valve Normal pulmonic valve. Great Vessels Normal aortic root. The pulmonary artery is normal size. Normal inferior vena cava. Pericardium/Pleural No pericardial effusion. MMode/2D Measurements AND Calculations LVIDd: 3.8 cm IVSd: 1.2 cm Ao root diam: 3.2 cm LVIDs: 2.5 cm LVPWd: 1.5 cm RVDd: 2.9 cm FS: 34.5 % LAV(MOD-bp): 61.4 ml EDV(MOD-sp4): 92.6 ml SV(MOD-sp4): 55.5 ml LAV(MOD-bp) Indexed: 30.7 ml/m2 ESV(MOD-sp4): 37.2 ml LAV(MOD-sp2): 51.8 ml EF(MOD-sp4): 59.9 % LAV(MOD-sp4): 69.4 ml LA A4 area: 21.9 cm2 RA A4 area: 12.0 cm2 Doppler Measurements AND Calculations MV E max meagan: 115.1 cm/sec Ao V2 max: 154.2 cm/sec LV V1 max: 80.8 cm/sec Ao max P.5 mmHg LV V1 max P.6 mmHg PA V2 max: 93.6 cm/sec TR max meagan: 296.4 cm/sec TR max P.1 mmHg Interpretation Summary Normal LV size. Mild concentric left ventricular hypertrophy. Left ventricular systolic function is normal. The estimated ejection fraction is 55 %. Mild (1+) tricuspid valve insufficiency. Pulmonary artery systolic pressure is 38 mmHg. Mild focal aortic valve calcification. Ordering Physician: Ryan Zelaya Referring Physician: Ryan Zelaya Performed By: Antonietta Beltran RDCS 01/29/18 1544 Date Ryan Zelaya MD CC: Dorinda Caballero MD; Ryan Zelaya MD Date Dictated: 01/29/18 1306 Date Transcribed: 01/29/18 1544 Inside Sales Supervisor: Signed T4 TOTAL, THYROXIN Collected: 01/24/2018 Status: F Source: [place] 10:06 AM [facility] REPOSITORY TYPE CODE TESTS RESULT OUT OF RANGE REFERENCE UNITS LAB L501.9310 4.5-12.1 ug/dL T4 Normal THYROXIN 8.4 Performed By: #### L501.9310, L501.9520 #### [facility] [address] [place], [address] THYROID STIM HORMONE Collected: 01/24/2018 Status: F Source: [place] (TSH) 10:06 AM [facility] REPOSITORY TYPE CODE TESTS RESULT OUT OF RANGE REFERENCE UNITS LAB L501.9520 0.358-3.74 uIU/mL Normal TSH 3.74 Performed By: #### L501.9310, L501.9520 #### [facility] [address] [place], [address] PROTHROMBIN TIME W/INR Collected: 01/08/2018 Status: F Source: [place] 12:01 PM [facility] REPOSITORY TYPE CODE TESTS RESULT OUT OF RANGE REFERENCE UNITS LAB L300.4150 11.7-14.9 SECONDS High PROTIME 26.3 LAB L300.4200 Normal INR 2.4 Performed By: #### L300.3900 #### [facility] [address] [place], [address] PROTHROMBIN TIME W/INR Collected: 11/24/2017 Status: F Source: [place] 9:32 AM [facility] REPOSITORY TYPE CODE TESTS RESULT OUT OF RANGE REFERENCE UNITS LAB L300.4150 11.7-14.9 SECONDS High PROTIME 23.9 LAB L300.4200 Normal INR 2.2 Performed By: #### L300.3900 #### [facility] [address] [place], [address] ALLERGIES ALLERGIES DATE TYPE / CODE NAME / CODE REACTION SEVERITY SOURCE 10/15/2017 Drug Cujpncu-Bwm-Bhw MYALGIAS [facility] Allergy/[address] [place] [address] 387513(SNOM Inhibitor/F72873 Repository [address]) 0095(RXNORM) Drug NO KNOWN [facility] Class/11340 ALLERGIES Other [place] 1003(SNOMED Repository CT) NG/34848576 NO KNOWN [facility] 6(SNOMED ALLERGIES Health [facility] CT) Repository ENCOUNTERS ENCOUNTERS ADMIT/DISCHARGE ACCOUNT NUMBER ADMITTING ENCOUNTER LOCATION SOURCE CLASS 10/22/2018 [id number] Ambulatory [facility] ding:MTLAB Repository 10/17/2018/10/17/19 [id number] Ambulatory BMSBuilding: [place] 19 [facility] Repository 10/01/2018/10/01/20 [id number] Ambulatory [address] ding:MTLAB Repository 08/22/2018/08/22/20 [id number] Ambulatory [place] [facility] Hospital ding:MTLAB Repository 07/18/2018/07/18/20 [id number] Ambulatory [place] [facility] ding:MTLAB Repository 06/20/2018/06/20/20 [id number] Ambulatory [place] [facility] Hospital ding:MTLAB Repository 06/07/2018 [id number] Ambulatory [place] [facility] ding:LAB Repository 05/16/2018 [id number] [facility] [place] [facility] Rep[facility] 04/20/2018/04/20/20 [id number] Ambulatory [place] [facility] ding:MTLAB Repository 03/26/2018/03/26/20 [id number] Ambulatory [place] 18 [facility] ding:MTLAB Repository 03/14/2018/03/14/20 [id number] Ambulatory [address] Repository 03/14/2018/03/14/20 [id number] Ambulatory [address] MEDICAL Repository CENTERBuildi ng:AGVASACC 02/27/2018 [id number] Ambulatory [facility] Repository 02/27/2018/02/28/20 [id number] Ambulatory [address] MEDICAL Repository CENTERBuildi ng:AKXRCT 02/27/2018 [id number] Ambulatory [facility] MEDICAL Repository CENTERBuildi ng:AKXRCT 02/14/2018/02/15/20 [id number] Ambulatory [place] [facility] ding:MTLAB Repository 01/29/2018 [id number] Ambulatory [place] ding:CVS Repository 01/29/2018 [id number] Ambulatory BMSBuilding: [facility] Hospital Repository 01/24/2018 [id number] [facility] ding:MFPLAB Repository 01/08/2018/01/09/20 [id number] Ambulatory [place] [facility] ding:MTLAB Repository 11/24/2017/11/24/19 [id number] Ambulatory [place] 18 [facility] ding:MTLAB Repository PAYERS PAYERS ENCOUNTER GUARANTOR PAYER SUBSCRIBER SOURCE 10/22/2018 GALE D Primary GALE D [place] [id number] Insurance:AETNA BLANCHARDDOB: [facility] Number: [id number] [id number] Repository [address]Bsp: (330) Date:5610-36-18ZF [phone] () [id number] [place] [phone]: 10/22/2018 Secondary NOT GIVENUNK [place] Insurance:SELF PAY [facility] Number: Effective Repository Date:2018-10-15 10/17/2018 GALE D Primary GALE D [place] [id number] Insurance:AETNA BLANCHARDDOB: [facility] Number: [id number] [id number] Repository [address]Ete: (330) Date:5220-03-87HI [phone] () [id number] [place] [phone]: 10/17/2018 Secondary NOT GIVENUNK [place] Insurance:SELF PAY [facility] Number: Effective Repository Date:2018-10-15 10/01/2018 GALE D Primary GALE D [place] [id number] Insurance:AETNA BLANCHARDDOB: [facility] Number: [id number], [place] [id number] Repository [address]Aiy: (330) Date:6480-41-17TK [phone] () [id number] ANAND TSAI [phone]: 10/01/2018 Secondary NOT GIVENUNK [place] Insurance:SELF PAY [facility] Number: Effective Repository Date:2018-09-18 08/22/2018 GALE D Primary GALE D [place] [id number] Insurance:AETNA BLANCHARDDOB: [facility] Number: [id number], [place] [id number] Repository [address]Odn: (330) Date:1974-57-97NX [phone] (HP) [id number] [place] [address]XQ: 08/22/2018 Secondary NOT GIVENUNK [place] Insurance:SELF PAY [facility] Number: Effective Repository Date:2018-08-16 07/18/2018 GALE D Primary GALE D [place] [id number] Insurance:AETNA BLANCHARDDOB: [facility] Number: [id number], [place] [id number] Repository [address]Qqd: (330) Date:5980-57-65XH [phone] (HP) [id number], [place] [address]FY: 07/18/2018 Secondary NOT GIVENUNK [place] Insurance:SELF PAY [facility] Number: Effective Repository Date:2018-07-17 06/20/2018 GALE D Primary GALE D [place] [id number] Insurance:AETNA BLANCHARDDOB: [facility] Number: [id number], [place] [id number] Repository [address]Zbp: (330) Date:9507-37-17LB [phone] (HP) [id number], [place] [address]KN: 06/20/2018 Secondary NOT GIVENUNK [place] Insurance:SELF PAY [facility] Number: Effective Repository Date:2018-05-18 06/07/2018 GALE D Primary GALE D [place] [id number] Insurance:AETNA BLANCHARDDOB: [facility] Number: [id number], [place] [id number] Repository [address]Kgo: (330) Date:3047-64-41QE [phone] (HP) [id number] GUTIÉRREZ [address]MJ: 06/07/2018 Secondary NOT GIVENUNK [place] Insurance:SELF PAY [facility] Number: Effective Repository Date:2018-06-07 05/16/2018 GALE D Primary GALE D [place] [id number] Insurance:AETNA [facility]DOB: [facility] Number: [id number], [place] [id number] Repository [address]Mqx: ([phone]) Date:2721-21-34EO [phone] (HP) [id number] [place], A[place]ND [address]OM: 05/16/2018 Secondary NOT GIVENUNK [place] Insurance:SELF PAY [facility] Number: Effective Repository Date:2018-05-16 04/20/2018 GALE D Primary GALE D [place] [id number] Insurance:AETNA BLANCHARDDOB: [facility] Number: [id number], [place] [id number] Repository [address]Gum: ([phone]) Date:7936-85-70CG [phone] () [id number] [place], A[place]ND [address]ZT: 04/20/2018 Secondary NOT GIVENUNK [place] Insurance:SELF PAY [facility] Number: Effective Repository Date:2018-04-13 03/26/2018 GALE D Primary GALE D [place] [id number] Insurance:AETNA BLANCHARDDOB: [facility] Number: [id number], [place] [id number] Repository [address]Eir: (204) Date:4062-64-53QA [phone] (HP) 305610ZPANAND GUTIÉRREZ [address]PP: 03/26/2018 Secondary NOT GIVENUNK [place] Insurance:SELF PAY [facility] Number: Effective Repository Date:2018-03-15 03/14/2018 GALE D Primary GALE D [facility] BLANCHARDDOB: Insurance:AETNA BLANCHARDDOB: [facility] MEDICARE HMOPolicy [id number] Repository [place] Number: JAZLYN JULIAN [id number]: (330) Date: [phone] () 02/27/2018 GALE Primary GALE [facility] BLANCHARDDOB: Insurance:AETNA BLANCHARDDOB: [facility] MEDICARE HMOPolicy [id number] Repository [place] Number: JAZLYN JULIAN [id number]: (330) Date: [phone] () 02/27/2018 GALE Primary GALE [facility] BLANCHARDDOB: Insurance:AETNA BLANCHARDDOB: [facility] MEDICARE HMOPolicy [id number] Repository [place] Number: JAZLYN JULIAN [id number]: (330) Date: [phone] () 02/14/2018 GALE D Primary GALE D [place] [id number] Insurance:AETNA BLANCHARDDOB: [facility] Number: [id number] [id number] Repository [address]Ell: (330) Date:6217-90-70WY [phone] () [id number] ANAND TSAI [address]FU: 02/14/2018 Secondary NOT GIVENUNK [place] Insurance:SELF PAY [facility] Number: Effective Repository Date:2018-01-15 01/29/2018 GALE D Primary GALE D [place] [id number] Insurance:AETNA BLANCHARDDOB: [facility] Number: [id number] Alamos Medical CenterW[place] [id number] Repository [address]Kke: (330) Date:8487-97-65EB [phone] () [id number] GUTIÉRREZ [address]ZP: 01/29/2018 Secondary NOT GIVENUNK [place] Insurance:SELF PAY [facility] Number: Effective Repository Date:2018-01-18 01/29/2018 GALE D Primary GALE D [place] [id number] Insurance:AETNA BLANCHARDDOB: [facility] Number: [id number], [place] [id number] Repository [address]Pyr: (330) Date:5154-16-87DU [phone] () [id number] ANAND TSAI [address]WD: 01/29/2018 Secondary NOT GIVENUNK [place] Insurance:SELF PAY [facility] Number: Effective Repository Date:2018-01-29 01/24/2018 GALE D Primary GALE D [place] [id number] Insurance:AETNA BLANCHARDDOB: [facility] Number: [id number], [place] [id number] Repository [address]Ast: (330) Date:1506-65-23NS [phone] () [id number] ANAND TSAI [address]WW: 01/24/2018 Secondary NOT GIVENUNK [place] Insurance:SELF PAY [facility] Number: Effective Repository Date:2018-01-24 01/08/2018 GALE D Primary GALE D [place] [id number] Insurance:AETNA BLANCHARDDOB: [facility] Number: [id number], [place] [id number] Repository [address]Qpw: (656) Date:2171-53-64JE [phone] () [id number] ANAND TSAI [address]DK: 01/08/2018 Secondary NOT GIVENUNK [place] Insurance:SELF PAY [facility] Number: Effective Repository Date:2017-12-14 11/24/2017 GALE D Primary GALE D [place] [id number] Insurance:AETNA BLANCHARDDOB: [facility] [place] MCRPolicy Number: [id number], [place] [id number] Repository [id number]: [id number]) Date:[id number] [phone] ( [id number] ANAND TSAI [id number]: 11/24/2017 Secondary NOT GIVENUNK [place] Insurance:SELF PAY [facility] [place] Number: Effective Repository Date:2017-10-16
== END 2018-10-01 10:00 | disposition home or self-care (01) ==
LOC: MTLAB 09:46
PROVIDERS: Family Provider Family Medicine; PCP Family Medicine; Referring Provider Internal Medicine Cardiovascular Disease; Visit Provider Internal Medicine Cardiovascular Disease
DX: I48.91 Unspecified atrial fibrillation (principal)
CPT/HCPCS: 36415; 85610

== ENCOUNTER 2018-10-22 08:28 | Outpatient (RCR) | payer MEDICARE, SELFPAY ==
[2018-10-17 09:31] VITALS: BMI 28.4
[2018-10-22 10:28] LABS: International Normalized Ratio 1.6; Prothrombin Time (Protime)PT. 19.5 SECONDS (11.7-14.9)
== END 2018-10-22 10:00 | disposition home or self-care (01) ==
LOC: MTLAB 08:28
PROVIDERS: Family Provider Family Medicine; PCP Family Medicine; Referring Provider Internal Medicine Cardiovascular Disease; Visit Provider Internal Medicine Cardiovascular Disease
DX: I48.91 Unspecified atrial fibrillation (principal)
CPT/HCPCS: 36415; 85610

== ENCOUNTER 2018-11-29 08:32 | Outpatient (RCR) | payer MEDICARE, SELFPAY ==
[2018-10-17 09:31] VITALS: BMI 28.4
[2018-11-29 10:04] LABS: International Normalized Ratio 2.5; Prothrombin Time (Protime)PT. 27.2 SECONDS (11.7-14.9)
== END 2018-12-13 14:26 | disposition home or self-care (01) ==
LOC: MTLAB 08:32
PROVIDERS: Family Provider Family Medicine; PCP Family Medicine; Referring Provider Internal Medicine Cardiovascular Disease; Visit Provider Internal Medicine Cardiovascular Disease
DX: I48.91 Unspecified atrial fibrillation (principal)
CPT/HCPCS: 36415; 85610

== ENCOUNTER 2019-01-16 09:58 | Outpatient (RCR) | payer MEDICARE, SELFPAY ==
[2018-10-17 09:31] VITALS: BMI 28.4
[2019-01-16 12:25] LABS: International Normalized Ratio 2.1; Prothrombin Time (Protime)PT. 23.6 SECONDS (11.7-14.9)
== END 2019-02-12 16:00 | disposition home or self-care (01) ==
LOC: MTLAB 09:58
PROVIDERS: Family Provider Family Medicine; PCP Family Medicine; Referring Provider Internal Medicine Cardiovascular Disease; Visit Provider Internal Medicine Cardiovascular Disease
DX: I48.91 Unspecified atrial fibrillation (principal)
CPT/HCPCS: 36415; 85610

== ENCOUNTER → 2019-01-25 10:17 | Outpatient (CLI) | payer MEDICARE, SELFPAY ==
[2018-10-17 09:31] VITALS: BMI 28.4
[2019-01-25 12:16] LABS: Absolute Lymphocyte Count 0.96 X10^3/ul (0.83-4.51); Absolute Neutrophil Count 3.5 X10^3/uL (2.0-7.7); Basophil# 0.03 X10^3/uL; Basophil% 0.6 % (0-1); Eosinophil# 0.09 X10^3/uL; Eosinophils% 1.7 % (0-5); Hematocrit 48.6 % (40-54); Hemoglobin 16.7 g/dl (13.0-16.5); Lymphocyte # 0.96 X10^3/ul (4.0); Lymphocyte % 18.3 % (19-41); Mean Corp Hgb Conc 34.4 g/gl (32-36); Mean Corpuscular Hgb 33.8 pg (27.0-32.0); Mean Corpuscular Volume 98.4 fL (80-94); Mean Platelet Vol. 11.1 fl (6.2-12.0); Monocyte# 0.63 X10^3/uL; Neutrophil # 3.54 X10^3/uL (2.7-7.7); Neutrophil % 67.4 % (47-70); Platelet Count 140 K/mm3 (150-450); RBC Distribution Width CV 14.1 % (11.6-14.6); RBC Distribution Width SD 50.2 fl (35.1-43.9); Red Blood Count 4.94 M/mm3 (4.6-6.2); White Blood Count 5.3 K/mm3 (4.4-11.0)
[2019-01-25 12:17] LABS: POSITIVE COUNT NO; POSITIVE DIFFERENTIAL NO; POSITIVE MORPHOLOGY NO
[2019-01-25 12:32] LABS: ALB/GLOB Ratio 1.3 RATIO (0.9-2.4); AST(SGOT) 28 U/L (15-37); Alanine Aminotransfer ALT/SGPT 34 U/L (16-61); Albumin, Serum 3.7 g/dL (3.2-5.0); Alkaline Phosphatase 40 U/L (45-117); Anion Gap 4 (5-15); BUN 20 mg/dL (7-18); BUN/Creat Ratio 14.8 RATIO (10-20); Calcium,Total 8.3 mg/dL (8.5-10.1); Chloride 105 mmol/L (98-107); Creatinine, Serum 1.35 mg/dL (0.70-1.30); EST Glomerular Filtration Rate 55 mL/min (>60); Est Glom Filt Rate - Afr Amer 67 mL/min (>60); Globulin 2.9 g/dL (2.2-4.2); Glucose 89 mg/dL (74-106); Potassium 4.3 mmol/L (3.5-5.1); Protein, Total 6.6 g/dL (6.4-8.2); Sodium Level 138 mmol/L (136-145); T4 Total, Thyroxin 7.5 ug/dL (4.5-12.1)
== END ==
PROVIDERS: Family Provider Family Medicine; PCP Family Medicine; Referring Provider Family Medicine; Visit Provider Family Medicine
DX: E03.9 Hypothyroidism, unspecified (principal); R63.5 Abnormal weight gain
CPT/HCPCS: 36415; 80053; 84403; 84436; 84443; 85025

== ENCOUNTER → 2019-02-07 08:51 | Outpatient (CLI) | payer MEDICARE, SELFPAY ==
[2018-10-17 09:31] VITALS: BMI 28.4
== END ==
PROVIDERS: Family Provider Family Medicine; PCP Family Medicine
DX: R53.83 Other fatigue (principal); E29.1 Testicular hypofunction; I48.91 Unspecified atrial fibrillation

== ENCOUNTER 2019-03-12 08:38 | Outpatient (RCR) | payer MEDICARE, SELFPAY ==
[2018-10-17 09:31] VITALS: BMI 28.4
[2019-02-13 10:10] LABS: International Normalized Ratio 1.8; Prothrombin Time (Protime)PT. 20.8 SECONDS (11.7-14.9)
[2019-02-13 10:26] LABS: Homocysteine 7.1 umol/L (3.2-10.7)
[2019-02-13 10:40] LABS: Progesterone Level 0.77 ng/mL (See Comment)
[2019-02-13 11:07] LABS: CRP < 2.90 mg/L (0.0-3.0); Cholesterol 213 mg/dL (200); High Density Lipoprotein 53 mg/dL; Prolactin 8.3 ng/mL; Triglycerides 87 mg/dL; Very Low Density Lipoprotein 17 mg/dL (5-40)
[2019-02-16 12:06] LABS: DHEA Sulfate 163.1 ug/dL (30.9-295.6); Estrogen, Total, Serum 116 pg/mL (40-115)
[2019-02-16 12:49] LABS: Serotonin, Serum 102 ng/mL (21-321)
[2019-03-12 10:51] LABS: International Normalized Ratio 1.6; Prothrombin Time (Protime)PT. 19.2 SECONDS (11.7-14.9)
== END 2019-03-12 10:00 | disposition home or self-care (01) ==
LOC: MTLAB 08:38
PROVIDERS: Family Provider Family Medicine; PCP Family Medicine; Referring Provider Internal Medicine Cardiovascular Disease; Visit Provider Internal Medicine Cardiovascular Disease
DX: I48.2 Chronic atrial fibrillation (principal); R53.83 Other fatigue; E29.1 Testicular hypofunction; Z79.01 Long term (current) use of anticoagulants; E56.9 Vitamin deficiency, unspecified; E03.9 Hypothyroidism, unspecified
CPT/HCPCS: 36415; 80061; 82533; 82627; 82672; 83090; 84144; 84146; 84260; 85610; 86140; 82626

== ENCOUNTER 2019-04-10 08:51 | Outpatient (RCR) | payer MEDICARE, SELFPAY ==
[2018-10-17 09:31] VITALS: BMI 28.4
[2019-03-27 14:22] LABS: International Normalized Ratio 1.8; Prothrombin Time (Protime)PT. 21.2 SECONDS (11.7-14.9)
[2019-04-03 16:08] LABS: International Normalized Ratio 1.8; Prothrombin Time (Protime)PT. 20.3 SECONDS (11.7-14.9)
[2019-04-10 10:22] LABS: International Normalized Ratio 1.9; Prothrombin Time (Protime)PT. 21.4 SECONDS (11.7-14.9)
== END 2019-04-10 09:00 | disposition home or self-care (01) ==
LOC: MTLAB 08:51
PROVIDERS: Family Provider Family Medicine; PCP Family Medicine; Referring Provider Internal Medicine Cardiovascular Disease; Visit Provider Internal Medicine Cardiovascular Disease
DX: Z79.01 Long term (current) use of anticoagulants (principal)
CPT/HCPCS: 36415; 85610

== ENCOUNTER → 2019-04-26 09:09 | Outpatient (CLI) | payer MEDICARE, SELFPAY ==
[2018-10-17 09:31] VITALS: BMI 28.4
[2019-04-26 10:59] LABS: Prothrombin Time (Protime)PT. 22.3 SECONDS (11.7-14.9)
== END ==
PROVIDERS: Nurse Practitioner Family; Family Provider Family Medicine; PCP Family Medicine; Visit Provider Family Medicine
DX: R63.5 Abnormal weight gain (principal); Z79.01 Long term (current) use of anticoagulants
CPT/HCPCS: 36415; 84403; 85610

== ENCOUNTER 2019-05-17 10:34 | Outpatient (RCR) | payer MEDICARE, SELFPAY ==
[2018-10-17 09:31] VITALS: BMI 28.4
[2019-05-17 12:39] LABS: International Normalized Ratio 2.2
== END 2019-05-17 11:34 | disposition home or self-care (01) ==
LOC: MTLAB 10:34
PROVIDERS: Family Provider Family Medicine; PCP Family Medicine; Referring Provider Internal Medicine Cardiovascular Disease; Visit Provider Internal Medicine Cardiovascular Disease
DX: Z79.01 Long term (current) use of anticoagulants (principal)
CPT/HCPCS: 36415; 85610

== ENCOUNTER 2019-07-10 09:16 | Outpatient (RCR) | payer MEDICARE, SELFPAY ==
[2018-10-17 09:31] VITALS: BMI 28.4
[2019-06-26 10:14] LABS: Absolute Lymphocyte Count 1.14 X10^3/uL (0.83-4.51); Absolute Neutrophil Count 2.7 X10^3/uL (2.0-7.7); Basophil# 0.05 X10^3/uL; Basophil% 1.1 % (0-1); Eosinophil# 0.14 X10^3/uL; Eosinophils% 3.1 % (0-5); Hematocrit 46.2 % (40-54); Hemoglobin 15.5 g/dL (13.0-16.5); Lymphocyte # 1.14 X10^3/ul (4.0); Lymphocyte % 25.2 % (19-41); Mean Corp Hgb Conc 33.5 g/dL (32-36); Mean Corpuscular Hgb 33.6 pg (27.0-32.0); Mean Corpuscular Volume 100.2 fL (80-94); Mean Platelet Vol. 10.3 fl (6.2-12.0); Monocyte# 0.53 X10^3/uL; Monocyte% 11.7 % (0-10); NRBC Flagged by Analyzer 0 % (0-5); Neutrophil # 2.65 X10^3/uL (2.7-7.7); Neutrophil % 58.7 % (47-70); Platelet Count 133 K/mm3 (150-450); RBC Distribution Width CV 13.8 % (11.6-14.6); RBC Distribution Width SD 51.4 fl (35.1-43.9); Red Blood Count 4.61 M/mm3 (4.6-6.2); White Blood Count 4.5 K/mm3 (4.4-11.0)
[2019-06-26 10:29] LABS: International Normalized Ratio 3.4; Prothrombin Time (Protime)PT. 34.2 SECONDS (11.7-14.9)
[2019-06-26 11:04] LABS: ALB/GLOB Ratio 1.1 RATIO (0.9-2.4); AST(SGOT) 22 U/L (15-37); Alanine Aminotransfer ALT/SGPT 30 U/L (16-61); Albumin, Serum 3.6 g/dL (3.2-5.0); Alkaline Phosphatase 37 U/L (45-117); Anion Gap 6 (5-15); BUN 20 mg/dL (7-18); BUN/Creat Ratio 13.9 RATIO (10-20); Calcium,Total 8.6 mg/dL (8.5-10.1); Chloride 108 mmol/L (98-107); Creatinine, Serum 1.44 mg/dL (0.70-1.30); EST Glomerular Filtration Rate 51 mL/min (>60); Est Glom Filt Rate - Afr Amer 62 mL/min (>60); Globulin 3.3 g/dL (2.2-4.2); Glucose 76 mg/dL (74-106); Potassium 4.1 mmol/L (3.5-5.1); Protein, Total 6.9 g/dL (6.4-8.2); Sodium Level 140 mmol/L (136-145); Thyroid Stim Hormone (TSH) 3.26 uIU/mL (0.358-3.74)
[2019-07-10 10:11] LABS: International Normalized Ratio 2.8; Prothrombin Time (Protime)PT. 29.3 SECONDS (11.7-14.9)
== END 2019-07-10 18:00 | disposition home or self-care (01) ==
LOC: MTLAB 09:16
PROVIDERS: Family Provider Family Medicine; PCP Family Medicine; Referring Provider Internal Medicine Cardiovascular Disease; Visit Provider Internal Medicine Cardiovascular Disease
DX: Z79.01 Long term (current) use of anticoagulants (principal); E03.9 Hypothyroidism, unspecified
CPT/HCPCS: 36415; 80053; 84403; 84436; 84443; 85025; 85610

== ENCOUNTER 2019-08-15 11:00 | Outpatient (RCR) | payer MEDICARE, SELFPAY ==
[2018-10-17 09:31] VITALS: BMI 28.4
[2019-08-15 12:30] LABS: International Normalized Ratio 2.5; Prothrombin Time (Protime)PT. 27.3 SECONDS (11.7-14.9)
== END 2019-08-15 18:00 | disposition home or self-care (01) ==
LOC: MTLAB 11:00
PROVIDERS: Family Provider Family Medicine; PCP Family Medicine; Referring Provider Internal Medicine Cardiovascular Disease; Visit Provider Internal Medicine Cardiovascular Disease
DX: Z79.01 Long term (current) use of anticoagulants (principal)
CPT/HCPCS: 36415; 85610

== ENCOUNTER 2019-10-10 09:39 | Outpatient (RCR) | payer MEDICARE, SELFPAY ==
[2018-10-17 09:31] VITALS: BMI 28.4
[2019-09-18 10:25] LABS: Prothrombin Time (Protime)PT. 22.9 SECONDS (11.7-14.9)
[2019-10-10 12:37] LABS: International Normalized Ratio 2.7; Prothrombin Time (Protime)PT. 28.8 SECONDS (11.7-14.9)
== END 2019-10-10 18:00 | disposition home or self-care (01) ==
LOC: MTLAB 09:39
PROVIDERS: Family Provider Family Medicine; PCP Family Medicine; Referring Provider Internal Medicine Cardiovascular Disease; Visit Provider Internal Medicine Cardiovascular Disease
DX: Z79.01 Long term (current) use of anticoagulants (principal)
CPT/HCPCS: 36415; 85610

== ENCOUNTER 2019-11-27 08:59 | Outpatient (RCR) | payer MEDICARE, SELFPAY ==
[2018-10-17 09:31] VITALS: BMI 28.4
[2019-10-24 09:58] VITALS: BMI 28.8
[2019-11-27 10:30] LABS: International Normalized Ratio 2.6; Prothrombin Time (Protime)PT. 28.2 SECONDS (11.7-14.9)
== END 2019-11-27 18:00 | disposition home or self-care (01) ==
LOC: MTLAB 08:59
PROVIDERS: Family Provider Family Medicine; PCP Family Medicine; Referring Provider Internal Medicine Cardiovascular Disease; Visit Provider Internal Medicine Cardiovascular Disease
DX: Z79.01 Long term (current) use of anticoagulants (principal)
CPT/HCPCS: 36415; 85610

== ENCOUNTER 2020-01-06 09:57 | Outpatient (RCR) | payer MEDICARE, SELFPAY ==
[2019-10-24 09:58] VITALS: BMI 28.8
== END 2020-01-06 18:00 | disposition home or self-care (01) ==
LOC: MTLAB 09:57
PROVIDERS: Family Provider Family Medicine; PCP Family Medicine; Referring Provider Internal Medicine Cardiovascular Disease; Visit Provider Internal Medicine Cardiovascular Disease
DX: Z79.01 Long term (current) use of anticoagulants (principal)
CPT/HCPCS: 36415; 85610

== ENCOUNTER 2020-02-19 09:03 | Outpatient (RCR) | payer MEDICARE, SELFPAY ==
[2019-10-24 09:58] VITALS: BMI 28.8
[2020-02-19 10:12] LABS: International Normalized Ratio 3.3; Prothrombin Time (Protime)PT. 33.5 SECONDS (11.7-14.9)
== END 2020-02-19 18:00 | disposition home or self-care (01) ==
LOC: MTLAB 09:03
PROVIDERS: Family Provider Family Medicine; PCP Family Medicine; Referring Provider Internal Medicine Cardiovascular Disease; Visit Provider Internal Medicine Cardiovascular Disease
DX: Z79.01 Long term (current) use of anticoagulants (principal)
CPT/HCPCS: 36415; 85610

== ENCOUNTER 2020-04-01 09:40 | Outpatient (RCR) | payer MEDICARE, SELFPAY ==
[2019-10-24 09:58] VITALS: BMI 28.8
[2020-03-18 10:43] LABS: Prothrombin Time (Protime)PT. 37.3 SECONDS (11.7-14.9)
[2020-03-18 10:53] LABS: International Normalized Ratio 3.8
[2020-04-01 12:57] LABS: International Normalized Ratio 2.9; Prothrombin Time (Protime)PT. 29.9 SECONDS (11.7-14.9)
== END 2020-04-01 18:00 | disposition home or self-care (01) ==
LOC: MTLAB 09:40
PROVIDERS: Family Provider Family Medicine; PCP Family Medicine; Referring Provider Internal Medicine Cardiovascular Disease; Visit Provider Internal Medicine Cardiovascular Disease
DX: I48.20 Chronic atrial fibrillation, unspecified (principal); Z79.01 Long term (current) use of anticoagulants
CPT/HCPCS: 36415; 85610

== ENCOUNTER 2020-04-30 09:37 | Outpatient (RCR) | payer MEDICARE, SELFPAY ==
[2019-10-24 09:58] VITALS: BMI 28.8
== END 2020-04-30 18:00 | disposition home or self-care (01) ==
LOC: MTLAB 09:37
PROVIDERS: Family Provider Family Medicine; PCP Family Medicine; Referring Provider Internal Medicine Cardiovascular Disease; Visit Provider Internal Medicine Cardiovascular Disease
DX: I48.20 Chronic atrial fibrillation, unspecified (principal); Z79.01 Long term (current) use of anticoagulants
CPT/HCPCS: 36415; 85610

== ENCOUNTER 2020-06-05 09:11 | Outpatient (RCR) | payer MEDICARE, SELFPAY ==
[2019-10-24 09:58] VITALS: BMI 28.8
[2020-06-05 10:33] LABS: International Normalized Ratio 2.5; Prothrombin Time (Protime)PT. 26.1 SECONDS (11.7-14.9)
[2020-06-05 17:30] LABS: Hematocrit 45.6 % (40-54); Hemoglobin 14.9 g/dL (13.0-16.5); Mean Corp Hgb Conc 32.7 g/dL (32-36); Mean Corpuscular Volume 101.1 fL (80-94); Mean Platelet Vol. 10.8 fl (6.2-12.0); Platelet Count 155 K/mm3 (150-450); RBC Distribution Width CV 13.8 % (11.6-14.6); Red Blood Count 4.51 M/mm3 (4.6-6.2); White Blood Count 5.4 K/mm3 (4.4-11.0)
== END 2020-06-15 18:00 | disposition home or self-care (01) ==
LOC: MTLAB 09:11
PROVIDERS: Family Provider Family Medicine; PCP Family Medicine; Referring Provider Internal Medicine Cardiovascular Disease; Visit Provider Internal Medicine Cardiovascular Disease
DX: I48.20 Chronic atrial fibrillation, unspecified (principal); Z79.01 Long term (current) use of anticoagulants
CPT/HCPCS: 36415; 85027; 85610

== ENCOUNTER 2020-07-22 10:02 | Outpatient (RCR) | payer MEDICARE, SELFPAY ==
[2019-10-24 09:58] VITALS: BMI 28.8
[2020-07-22 12:10] LABS: International Normalized Ratio 2.3; Prothrombin Time (Protime)PT. 25.1 SECONDS (11.7-14.9)
== END 2020-07-22 18:00 | disposition home or self-care (01) ==
LOC: MTLAB 10:02
PROVIDERS: Family Provider Family Medicine; PCP Family Medicine; Referring Provider Internal Medicine Cardiovascular Disease; Visit Provider Internal Medicine Cardiovascular Disease
DX: Z79.01 Long term (current) use of anticoagulants (principal)
CPT/HCPCS: 36415; 85610

== ENCOUNTER 2020-08-19 08:57 | Outpatient (RCR) | payer MEDICARE, SELFPAY ==
[2019-10-24 09:58] VITALS: BMI 28.8
[2020-08-19 10:22] LABS: International Normalized Ratio 2.3; Prothrombin Time (Protime)PT. 25.2 SECONDS (11.7-14.9)
== END 2020-08-19 18:00 | disposition home or self-care (01) ==
LOC: MTLAB 08:57
PROVIDERS: Family Provider Family Medicine; PCP Family Medicine; Referring Provider Internal Medicine Cardiovascular Disease; Visit Provider Internal Medicine Cardiovascular Disease
DX: I48.20 Chronic atrial fibrillation, unspecified (principal); Z79.01 Long term (current) use of anticoagulants
CPT/HCPCS: 36415; 85610

== ENCOUNTER 2020-09-16 08:57 | Outpatient (RCR) | payer MEDICARE, SELFPAY ==
[2019-10-24 09:58] VITALS: BMI 28.8
[2020-09-16 10:33] LABS: International Normalized Ratio 2.3; Prothrombin Time (Protime)PT. 24.5 SECONDS (11.7-14.9)
== END 2020-09-16 18:00 | disposition home or self-care (01) ==
LOC: MTLAB 08:57
PROVIDERS: Family Provider Family Medicine; PCP Family Medicine; Referring Provider Internal Medicine Cardiovascular Disease; Visit Provider Internal Medicine Cardiovascular Disease
DX: I48.20 Chronic atrial fibrillation, unspecified (principal); Z79.01 Long term (current) use of anticoagulants
CPT/HCPCS: 36415; 85610

== ENCOUNTER 2020-10-21 08:45 | Outpatient (RCR) | payer MEDICARE, SELFPAY ==
[2019-10-24 09:58] VITALS: BMI 28.8
[2020-10-21 10:51] LABS: International Normalized Ratio 2.7; Prothrombin Time (Protime)PT. 28.6 SECONDS (11.7-14.9)
== END 2020-10-21 18:00 | disposition home or self-care (01) ==
LOC: MTLAB 08:45
PROVIDERS: Family Provider Family Medicine; PCP Family Medicine; Referring Provider Internal Medicine Cardiovascular Disease; Visit Provider Internal Medicine Cardiovascular Disease
DX: I48.20 Chronic atrial fibrillation, unspecified (principal); Z79.01 Long term (current) use of anticoagulants
CPT/HCPCS: 36415; 85610

== ENCOUNTER 2020-12-02 12:42 | Outpatient (RCR) | payer MEDICARE, SELFPAY ==
[2020-10-21 07:16] VITALS: BMI 29.2
[2020-12-02 15:48] LABS: International Normalized Ratio 2.4; Prothrombin Time (Protime)PT. 25.6 SECONDS (11.7-14.9)
== END 2020-12-02 18:00 | disposition home or self-care (01) ==
LOC: MTLAB 12:42
PROVIDERS: Family Provider Family Medicine; PCP Family Medicine; Referring Provider Internal Medicine Cardiovascular Disease; Visit Provider Internal Medicine Cardiovascular Disease
DX: I48.20 Chronic atrial fibrillation, unspecified (principal); Z79.01 Long term (current) use of anticoagulants
CPT/HCPCS: 36415; 85610

== ENCOUNTER 2021-01-13 09:05 | Outpatient (RCR) | payer MEDICARE, SELFPAY ==
[2020-10-21 07:16] VITALS: BMI 29.2
[2021-01-13 10:23] LABS: International Normalized Ratio 2.3; Prothrombin Time (Protime)PT. 24.4 SECONDS (11.7-14.9)
== END 2021-01-13 18:00 | disposition home or self-care (01) ==
LOC: MTLAB 09:05
PROVIDERS: Family Provider Family Medicine; PCP Family Medicine; Referring Provider Internal Medicine Cardiovascular Disease; Visit Provider Internal Medicine Cardiovascular Disease
DX: I48.20 Chronic atrial fibrillation, unspecified (principal); Z79.01 Long term (current) use of anticoagulants
CPT/HCPCS: 36415; 85610

== ENCOUNTER 2021-02-24 09:55 | Outpatient (RCR) | payer MEDICARE, SELFPAY ==
[2020-10-21 07:16] VITALS: BMI 29.2
[2021-02-24 12:48] LABS: International Normalized Ratio 2.7; Prothrombin Time (Protime)PT. 27.5 SECONDS (11.7-14.9)
== END 2021-02-24 18:00 | disposition home or self-care (01) ==
LOC: MTLAB 09:55
PROVIDERS: Family Provider Family Medicine; PCP Family Medicine; Referring Provider Internal Medicine Cardiovascular Disease; Visit Provider Internal Medicine Cardiovascular Disease
DX: I48.20 Chronic atrial fibrillation, unspecified (principal); Z79.01 Long term (current) use of anticoagulants
CPT/HCPCS: 36415; 85610

== ENCOUNTER → 2021-02-26 10:23 | Outpatient (CLI) | payer MEDICARE, SELFPAY ==
[2020-10-21 07:16] VITALS: BMI 29.2
[2021-02-26 13:00] LABS: T4 Total, Thyroxin 7.7 ug/dL (4.5-12.1); Thyroid Stim Hormone (TSH) 2.82 uIU/mL (0.358-3.74)
== END ==
PROVIDERS: PCP Family Medicine; Referring Provider Family Medicine; Visit Provider Family Medicine
DX: E03.9 Hypothyroidism, unspecified (principal)
CPT/HCPCS: 36415; 84436; 84443

== ENCOUNTER 2021-03-17 08:59 | Outpatient (RCR) | payer MEDICARE, SELFPAY ==
[2020-10-21 07:16] VITALS: BMI 29.2
[2021-03-17 10:18] LABS: Prothrombin Time (Protime)PT. 30.2 SECONDS (11.7-14.9)
== END 2021-03-17 18:00 | disposition home or self-care (01) ==
LOC: MTLAB 08:59
PROVIDERS: Family Provider Family Medicine; PCP Family Medicine; Referring Provider Internal Medicine Cardiovascular Disease; Visit Provider Internal Medicine Cardiovascular Disease
DX: Z79.01 Long term (current) use of anticoagulants (principal); I48.11 Longstanding persistent atrial fibrillation
CPT/HCPCS: 36415; 85610

== ENCOUNTER 2021-04-21 08:55 | Outpatient (RCR) | payer MEDICARE, SELFPAY ==
[2020-10-21 07:16] VITALS: BMI 29.2
[2021-04-21 10:24] LABS: International Normalized Ratio 2.1
== END 2021-04-21 18:00 | disposition home or self-care (01) ==
LOC: MTLAB 08:55
PROVIDERS: Family Provider Family Medicine; PCP Family Medicine; Referring Provider Internal Medicine Cardiovascular Disease; Visit Provider Internal Medicine Cardiovascular Disease
DX: Z79.01 Long term (current) use of anticoagulants (principal)
CPT/HCPCS: 36415; 85610

== ENCOUNTER 2021-05-19 09:16 | Outpatient (RCR) | payer MEDICARE, SELFPAY ==
[2020-10-21 07:16] VITALS: BMI 29.2
[2021-05-19 10:53] LABS: International Normalized Ratio 2.7
== END 2021-05-19 18:00 | disposition home or self-care (01) ==
LOC: MTLAB 09:16
PROVIDERS: Family Provider Family Medicine; PCP Family Medicine; Referring Provider Internal Medicine Cardiovascular Disease; Visit Provider Internal Medicine Cardiovascular Disease
DX: I48.11 Longstanding persistent atrial fibrillation (principal); Z79.01 Long term (current) use of anticoagulants
CPT/HCPCS: 36415; 85610

== ENCOUNTER 2021-06-16 11:42 | Outpatient (RCR) | payer MEDICARE, SELFPAY ==
[2021-06-16 01:22] VITALS: BMI 29.2
[2021-06-16 15:19] LABS: Prothrombin Time (Protime)PT. 21.9 SECONDS (11.7-14.9)
== END 2021-06-16 18:00 | disposition home or self-care (01) ==
LOC: MTLAB 11:42
PROVIDERS: Family Provider Family Medicine; PCP Family Medicine; Referring Provider Internal Medicine Cardiovascular Disease; Visit Provider Internal Medicine Cardiovascular Disease
DX: I48.11 Longstanding persistent atrial fibrillation (principal); Z79.01 Long term (current) use of anticoagulants
CPT/HCPCS: 36415; 85610

== ENCOUNTER 2021-08-11 12:27 | Outpatient (RCR) | payer MEDICARE, SELFPAY ==
[2021-07-16 01:57] VITALS: BMI 29.2
[2021-07-21 10:24] LABS: International Normalized Ratio 1.9; Prothrombin Time (Protime)PT. 21.2 SECONDS (11.7-14.9)
[2021-08-04 15:34] LABS: International Normalized Ratio 1.4; Prothrombin Time (Protime)PT. 16.7 SECONDS (11.7-14.9)
[2021-08-11 15:20] LABS: International Normalized Ratio 1.7; Prothrombin Time (Protime)PT. 19.5 SECONDS (11.7-14.9)
== END 2021-08-15 18:00 | disposition home or self-care (01) ==
LOC: MTLAB 12:27
PROVIDERS: Family Provider Family Medicine; PCP Family Medicine; Referring Provider Internal Medicine Cardiovascular Disease; Visit Provider Internal Medicine Cardiovascular Disease
DX: I48.11 Longstanding persistent atrial fibrillation (principal); Z79.01 Long term (current) use of anticoagulants
CPT/HCPCS: 36415; 85610

== ENCOUNTER 2021-08-18 10:53 | Outpatient (RCR) | payer MEDICARE, SELFPAY ==
[2021-08-15 20:35] VITALS: BMI 29.2
[2021-08-18 12:27] LABS: Prothrombin Time (Protime)PT. 21.6 SECONDS (11.7-14.9)
== END 2021-09-14 18:00 | disposition home or self-care (01) ==
LOC: MTLAB 10:53
PROVIDERS: Family Provider Family Medicine; PCP Family Medicine; Referring Provider Internal Medicine Cardiovascular Disease; Visit Provider Internal Medicine Cardiovascular Disease
DX: I48.11 Longstanding persistent atrial fibrillation (principal); Z79.01 Long term (current) use of anticoagulants
CPT/HCPCS: 36415; 85610

== ENCOUNTER 2021-09-23 07:41 | Outpatient (RCR) | payer MEDICARE, SELFPAY ==
[2021-09-15 04:07] VITALS: BMI 29.2
[2021-09-23 11:05] LABS: International Normalized Ratio 2.7; Prothrombin Time (Protime)PT. 28.1 SECONDS (11.7-14.9)
[2021-09-23 11:17] LABS: AST(SGOT) 23 U/L (15-37); Alanine Aminotransfer ALT/SGPT 30 U/L (16-61); Albumin, Serum 3.6 g/dL (3.2-5.0); Alkaline Phosphatase 48 U/L (45-117); Bilirubin, Direct 0.15 mg/dL (0.00-0.30); Cholesterol 192 mg/dL (200); Globulin 3.6 g/dL (2.2-4.2); High Density Lipoprotein 56 mg/dL; Protein, Total 7.2 g/dL (6.4-8.2); Triglycerides 59 mg/dL; Very Low Density Lipoprotein 12 mg/dL (5-40)
== END 2021-10-16 18:00 | disposition home or self-care (01) ==
LOC: MTLAB 07:41
PROVIDERS: Family Provider Family Medicine; PCP Family Medicine; Referring Provider Internal Medicine Cardiovascular Disease; Visit Provider Internal Medicine Cardiovascular Disease
DX: I48.11 Longstanding persistent atrial fibrillation (principal); Z79.01 Long term (current) use of anticoagulants; E78.2 Mixed hyperlipidemia
CPT/HCPCS: 36415; 80061; 80076; 85610

== ENCOUNTER 2021-10-20 09:07 | Outpatient (RCR) | payer MEDICARE, SELFPAY ==
[2021-10-17 18:19] VITALS: BMI 29.2
[2021-10-20 10:26] LABS: International Normalized Ratio 1.6; Prothrombin Time (Protime)PT. 18.5 SECONDS (11.7-14.9)
== END 2021-11-15 18:00 | disposition home or self-care (01) ==
LOC: MTLAB 09:07
PROVIDERS: Family Provider Family Medicine; PCP Family Medicine; Referring Provider Internal Medicine Cardiovascular Disease; Visit Provider Internal Medicine Cardiovascular Disease
DX: I48.11 Longstanding persistent atrial fibrillation (principal); Z79.01 Long term (current) use of anticoagulants
CPT/HCPCS: 36415; 85610

== ENCOUNTER 2021-12-03 12:44 | Outpatient (RCR) | payer MEDICARE, SELFPAY ==
[2021-11-16 01:43] VITALS: BMI 29.2
[2021-11-22 13:00] LABS: International Normalized Ratio 1.7; Prothrombin Time (Protime)PT. 18.9 SECONDS (11.7-14.9)
[2021-11-29 15:31] LABS: International Normalized Ratio 1.3; Prothrombin Time (Protime)PT. 15.6 SECONDS (11.7-14.9)
[2021-12-03 15:08] LABS: International Normalized Ratio 1.5; Prothrombin Time (Protime)PT. 17.8 SECONDS (11.7-14.9)
== END 2021-12-03 23:59 | disposition home or self-care (01) ==
LOC: MTLAB 12:44
PROVIDERS: Family Provider Family Medicine; PCP Family Medicine; Referring Provider Internal Medicine Cardiovascular Disease; Visit Provider Internal Medicine Cardiovascular Disease
DX: I48.11 Longstanding persistent atrial fibrillation (principal); Z79.01 Long term (current) use of anticoagulants
CPT/HCPCS: 36415; 85610

== ENCOUNTER 2022-01-17 11:48 | Outpatient (RCR) | payer MEDICARE, SELFPAY ==
[2021-12-14 10:18] VITALS: BMI 29.2
[2022-01-17 15:21] LABS: International Normalized Ratio 2.3; Prothrombin Time (Protime)PT. 24.6 SECONDS (11.7-14.9)
== END 2022-01-17 18:00 | disposition home or self-care (01) ==
LOC: MTLAB 11:48
PROVIDERS: Family Provider Family Medicine; PCP Family Medicine; Referring Provider Internal Medicine Cardiovascular Disease; Visit Provider Internal Medicine Cardiovascular Disease
DX: I48.11 Longstanding persistent atrial fibrillation (principal); Z79.01 Long term (current) use of anticoagulants
CPT/HCPCS: 36415; 85610

== ENCOUNTER → 2022-03-02 | Outpatient (CLI) | payer MEDICARE, SELFPAY ==
[2022-03-02 12:28] LABS: PSA,Total - Annual Screen 0.31 ng/mL (0.00-4.00); T4 Total, Thyroxin 7.3 ug/dL (4.5-12.1); Thyroid Stim Hormone (TSH) 2.61 uIU/mL (0.358-3.74)
== END | disposition home or self-care (01) ==
LOC: MFPLAB 10:39
PROVIDERS: PCP Family Medicine; Referring Provider Family Medicine; Visit Provider Family Medicine
DX: E03.9 Hypothyroidism, unspecified (principal); Z12.5 Encounter for screening for malignant neoplasm of prostate
CPT/HCPCS: 36415; 84153; 84436; 84443; G0103

== ENCOUNTER 2022-03-09 11:37 | Outpatient (RCR) | payer MEDICARE, SELFPAY ==
[2022-02-13 05:25] VITALS: BMI 29.2
[2022-02-17 10:30] LABS: International Normalized Ratio 1.7; Prothrombin Time (Protime)PT. 19.6 SECONDS (11.7-14.9)
[2022-03-09 15:40] LABS: Prothrombin Time (Protime)PT. 30.8 SECONDS (11.7-14.9)
== END 2022-03-09 18:00 | disposition home or self-care (01) ==
LOC: MTLAB 11:37
PROVIDERS: Family Provider Family Medicine; PCP Family Medicine; Referring Provider Internal Medicine Cardiovascular Disease; Visit Provider Internal Medicine Cardiovascular Disease
DX: I48.11 Longstanding persistent atrial fibrillation (principal); Z79.01 Long term (current) use of anticoagulants
CPT/HCPCS: 36415; 85610

== ENCOUNTER 2022-04-06 09:27 | Outpatient (RCR) | payer MEDICARE, SELFPAY ==
[2022-03-15 21:44] VITALS: BMI 29.2
[2022-04-06 12:11] LABS: International Normalized Ratio 3.4; Prothrombin Time (Protime)PT. 33.7 SECONDS (11.7-14.9)
== END 2022-04-14 16:00 | disposition home or self-care (01) ==
LOC: MTLAB 09:27
PROVIDERS: Family Provider Family Medicine; PCP Family Medicine; Referring Provider Internal Medicine Cardiovascular Disease; Visit Provider Internal Medicine Cardiovascular Disease
DX: I48.11 Longstanding persistent atrial fibrillation (principal); Z79.01 Long term (current) use of anticoagulants
CPT/HCPCS: 36415; 85610

== ENCOUNTER 2022-05-25 10:57 | Outpatient (RCR) | payer MEDICARE, SELFPAY ==
[2022-04-15 08:13] VITALS: BMI 29.2
[2022-05-25 15:14] LABS: International Normalized Ratio 2.1; Prothrombin Time (Protime)PT. 22.8 SECONDS (11.7-14.9)
== END 2022-05-25 18:00 | disposition home or self-care (01) ==
LOC: MTLAB 10:57
PROVIDERS: Family Provider Family Medicine; PCP Family Medicine; Referring Provider Internal Medicine Cardiovascular Disease; Visit Provider Internal Medicine Cardiovascular Disease
DX: I48.11 Longstanding persistent atrial fibrillation (principal); Z79.01 Long term (current) use of anticoagulants
CPT/HCPCS: 36415; 85610

== ENCOUNTER 2022-07-13 09:38 | Outpatient (RCR) | payer MEDICARE, SELFPAY ==
[2022-06-16 00:59] VITALS: BMI 29.2
[2022-06-22 12:11] LABS: International Normalized Ratio 3.3; Prothrombin Time (Protime)PT. 33.6 SECONDS (11.7-14.9)
[2022-07-01 12:24] LABS: International Normalized Ratio 3.4; Prothrombin Time (Protime)PT. 33.8 SECONDS (11.7-14.9)
[2022-07-13 12:44] LABS: Prothrombin Time (Protime)PT. 31.2 SECONDS (11.7-14.9)
== END 2022-07-13 18:00 | disposition home or self-care (01) ==
LOC: MTLAB 09:38
PROVIDERS: Family Provider Family Medicine; PCP Family Medicine; Referring Provider Internal Medicine Cardiovascular Disease; Visit Provider Internal Medicine Cardiovascular Disease
DX: I48.11 Longstanding persistent atrial fibrillation (principal); Z79.01 Long term (current) use of anticoagulants
CPT/HCPCS: 36415; 85610

== ENCOUNTER 2022-08-10 09:27 | Outpatient (RCR) | payer MEDICARE, SELFPAY ==
[2022-07-16 01:49] VITALS: BMI 29.2
[2022-08-10 12:09] LABS: International Normalized Ratio 2.9; Prothrombin Time (Protime)PT. 30.2 SECONDS (11.7-14.9)
== END 2022-08-10 18:00 | disposition home or self-care (01) ==
LOC: MTLAB 09:27
PROVIDERS: Family Provider Family Medicine; PCP Family Medicine; Referring Provider Internal Medicine Cardiovascular Disease; Visit Provider Internal Medicine Cardiovascular Disease
DX: I48.11 Longstanding persistent atrial fibrillation (principal); Z79.01 Long term (current) use of anticoagulants
CPT/HCPCS: 36415; 85610

== ENCOUNTER 2022-09-14 08:40 | Outpatient (RCR) | payer MEDICARE, SELFPAY ==
[2022-08-16 10:24] VITALS: BMI 29.2
[2022-09-14 10:30] LABS: International Normalized Ratio 2.7; Prothrombin Time (Protime)PT. 28.6 SECONDS (11.7-14.9)
== END 2022-09-14 18:00 | disposition home or self-care (01) ==
LOC: MTLAB 08:40
PROVIDERS: Family Provider Family Medicine; PCP Family Medicine; Referring Provider Internal Medicine Cardiovascular Disease; Visit Provider Internal Medicine Cardiovascular Disease
DX: I48.11 Longstanding persistent atrial fibrillation (principal); Z79.01 Long term (current) use of anticoagulants
CPT/HCPCS: 36415; 85610

== ENCOUNTER → 2022-09-15 | Outpatient (CLI) | payer MEDICARE, SELFPAY ==
[2022-09-15 11:05] LABS: AST(SGOT) 20 U/L (15-37); Alanine Aminotransfer ALT/SGPT 31 U/L (16-61); Albumin, Serum 3.6 g/dL (3.2-5.0); Alkaline Phosphatase 51 U/L (45-117); Bilirubin, Direct 0.12 mg/dL (0.00-0.30); Cholesterol 209 mg/dL (200); Globulin 2.9 g/dL (2.2-4.2); High Density Lipoprotein 52 mg/dL; Protein, Total 6.5 g/dL (6.4-8.2); Triglycerides 82 mg/dL; Very Low Density Lipoprotein 16 mg/dL (5-40)
== END | disposition home or self-care (01) ==
LOC: MTLAB 07:37
PROVIDERS: PCP Family Medicine; Referring Provider Internal Medicine Cardiovascular Disease; Visit Provider Internal Medicine Cardiovascular Disease
DX: E78.2 Mixed hyperlipidemia (principal)
CPT/HCPCS: 36415; 80061; 80076

== ENCOUNTER 2022-11-14 14:05 | Outpatient (RCR) | payer MEDICARE, SELFPAY ==
[2022-09-15 02:23] VITALS: BMI 29.2
[2022-10-19 12:59] LABS: International Normalized Ratio 2.9
[2022-11-14 16:05] LABS: International Normalized Ratio 2.9; Prothrombin Time (Protime)PT. 29.8 SECONDS (11.7-14.9)
== END 2022-11-14 16:05 | disposition home or self-care (01) ==
LOC: MTLAB 14:05
PROVIDERS: Family Provider Family Medicine; PCP Family Medicine; Referring Provider Internal Medicine Cardiovascular Disease; Visit Provider Internal Medicine Cardiovascular Disease
DX: I48.11 Longstanding persistent atrial fibrillation (principal); Z79.01 Long term (current) use of anticoagulants
CPT/HCPCS: 36415; 85610

== ENCOUNTER 2022-12-12 10:53 | Outpatient (RCR) | payer MEDICARE, SELFPAY ==
[2022-11-16 07:22] VITALS: BMI 29.2
[2022-12-12 12:12] LABS: International Normalized Ratio 2.7
== END 2022-12-12 18:00 | disposition home or self-care (01) ==
LOC: MTLAB 10:53
PROVIDERS: Family Provider Family Medicine; PCP Family Medicine; Referring Provider Internal Medicine Cardiovascular Disease; Visit Provider Internal Medicine Cardiovascular Disease
DX: I48.11 Longstanding persistent atrial fibrillation (principal); Z79.01 Long term (current) use of anticoagulants
CPT/HCPCS: 36415; 85610

== ENCOUNTER 2023-01-25 10:30 | Outpatient (RCR) | payer MEDICARE, SELFPAY ==
[2022-12-13 23:12] VITALS: BMI 29.2
[2023-01-25 12:54] LABS: International Normalized Ratio 2.5; Prothrombin Time (Protime)PT. 26.7 SECONDS (11.7-14.9)
== END 2023-02-12 05:17 | disposition home or self-care (01) ==
LOC: MTLAB 10:30
PROVIDERS: Physician Assistant Medical; Family Provider Family Medicine; PCP Family Medicine; Referring Provider Internal Medicine Cardiovascular Disease; Visit Provider Internal Medicine Cardiovascular Disease
DX: I48.11 Longstanding persistent atrial fibrillation (principal); Z79.01 Long term (current) use of anticoagulants
CPT/HCPCS: 36415; 85610

== ENCOUNTER 2023-02-15 10:36 | Outpatient (RCR) | payer MEDICARE, SELFPAY ==
[2023-02-12 05:17] VITALS: BMI 29.2
[2023-02-15 12:14] LABS: International Normalized Ratio 2.5
== END 2023-02-15 11:36 | disposition home or self-care (01) ==
LOC: MTLAB 10:36
PROVIDERS: Family Provider Family Medicine; PCP Family Medicine; Referring Provider Internal Medicine Cardiovascular Disease; Visit Provider Internal Medicine Cardiovascular Disease
DX: I48.11 Longstanding persistent atrial fibrillation (principal); Z79.01 Long term (current) use of anticoagulants
CPT/HCPCS: 36415; 85610

== ENCOUNTER → 2023-03-07 | Outpatient (CLI) | payer MEDICARE, SELFPAY ==
[2023-03-07 13:24] LABS: T4 Total, Thyroxin 7.1 ug/dL (4.5-12.1); Thyroid Stim Hormone (TSH) 2.47 uIU/mL (0.358-3.74)
== END | disposition home or self-care (01) ==
LOC: MFPLAB 10:27
PROVIDERS: PCP Family Medicine; Visit Provider Family Medicine
DX: E03.9 Hypothyroidism, unspecified (principal)
CPT/HCPCS: 36415; 84436; 84443

== ENCOUNTER 2023-03-29 12:30 | Outpatient (RCR) | payer MEDICARE, SELFPAY ==
[2023-03-16 08:04] VITALS: BMI 29.2
[2023-03-29 15:53] LABS: International Normalized Ratio 2.8; Prothrombin Time (Protime)PT. 29.6 SECONDS (11.7-14.9)
== END 2023-03-29 18:00 | disposition home or self-care (01) ==
LOC: MTLAB 12:30
PROVIDERS: Family Provider Family Medicine; PCP Family Medicine; Referring Provider Internal Medicine Cardiovascular Disease; Visit Provider Internal Medicine Cardiovascular Disease
DX: I48.11 Longstanding persistent atrial fibrillation (principal); Z79.01 Long term (current) use of anticoagulants
CPT/HCPCS: 36415; 85610

== ENCOUNTER 2023-05-04 09:28 | Outpatient (RCR) | payer MEDICARE, SELFPAY ==
[2023-04-15 02:20] VITALS: BMI 29.2
[2023-04-26 12:46] LABS: International Normalized Ratio 3.5; Prothrombin Time (Protime)PT. 35.4 SECONDS (11.7-14.9)
[2023-05-04 12:38] LABS: International Normalized Ratio 2.2
[2023-05-04 13:09] LABS: T4 Total, Thyroxin 8.4 ug/dL (4.5-12.1); Thyroid Stim Hormone (TSH) 3.46 uIU/mL (0.358-3.74)
== END 2023-05-15 18:00 | disposition home or self-care (01) ==
LOC: MTLAB 09:28
PROVIDERS: Family Provider Family Medicine; PCP Family Medicine; Referring Provider Internal Medicine Cardiovascular Disease; Visit Provider Internal Medicine Cardiovascular Disease
DX: I48.11 Longstanding persistent atrial fibrillation (principal); Z79.01 Long term (current) use of anticoagulants
CPT/HCPCS: 36415; 84436; 84443; 85610

== ENCOUNTER 2023-05-24 09:08 | Outpatient (RCR) | payer MEDICARE, SELFPAY ==
[2023-05-16 02:19] VITALS: BMI 29.2
[2023-05-24 10:17] LABS: International Normalized Ratio 2.6; Prothrombin Time (Protime)PT. 27.8 SECONDS (11.7-14.9)
== END 2023-05-24 18:00 | disposition home or self-care (01) ==
LOC: MTLAB 09:08
PROVIDERS: Family Provider Family Medicine; PCP Family Medicine; Referring Provider Internal Medicine Cardiovascular Disease; Visit Provider Internal Medicine Cardiovascular Disease
DX: I48.11 Longstanding persistent atrial fibrillation (principal); Z79.01 Long term (current) use of anticoagulants
CPT/HCPCS: 36415; 85610

== ENCOUNTER 2023-07-13 09:35 | Outpatient (RCR) | payer MEDICARE, SELFPAY ==
[2023-06-16 01:58] VITALS: BMI 29.2
[2023-06-22 12:40] LABS: International Normalized Ratio 2.8; Prothrombin Time (Protime)PT. 29.5 SECONDS (11.7-14.9)
[2023-07-13 12:09] LABS: Hematocrit 45.5 % (40-54); Hemoglobin 14.8 g/dL (13.0-16.5); Mean Corp Hgb Conc 32.5 g/dL (32-36); Mean Corpuscular Volume 101.6 fL (80-94); Mean Platelet Vol. 11.8 fl (6.2-12.0); Platelet Count 125 K/mm3 (150-450); RBC Distribution Width CV 13.6 % (11.6-14.6); RBC Distribution Width SD 51.1 fl (35.1-43.9); Red Blood Count 4.48 M/mm3 (4.6-6.2); White Blood Count 5.1 K/mm3 (4.4-11.0)
[2023-07-13 12:10] LABS: International Normalized Ratio 2.5
[2023-07-13 12:33] LABS: Vitamin B12 857 pg/mL (211-911)
[2023-07-13 12:54] LABS: AST(SGOT) 23 U/L (15-37); Alanine Aminotransfer ALT/SGPT 36 U/L (16-61); Albumin, Serum 3.8 g/dL (3.2-5.0); Alkaline Phosphatase 68 U/L (45-117); Bilirubin, Direct 0.16 mg/dL (0.00-0.30); Cholesterol 216 mg/dL (200); Globulin 3.7 g/dL (2.2-4.2); High Density Lipoprotein 50 mg/dL; Protein, Total 7.5 g/dL (6.4-8.2); Triglycerides 69 mg/dL; Very Low Density Lipoprotein 14 mg/dL (5-40)
[2023-07-13 14:34] LABS: ALB/GLOB Ratio 1.1 RATIO (0.9-2.4); AST(SGOT) 26 U/L (15-37); Alanine Aminotransfer ALT/SGPT 37 U/L (16-61); Albumin, Serum 3.9 g/dL (3.2-5.0); Alkaline Phosphatase 67 U/L (45-117); Anion Gap 4 (5-15); BUN 19 mg/dL (7-18); BUN/Creat Ratio 13.6 RATIO (10-20); Chloride 107 mmol/L (98-107); EST Glomerular Filtration Rate 52 mL/min (>60); Est Glom Filt Rate - Afr Amer 63 mL/min (>60); Folates, (Folic Acid) > 100.00 ng/mL (3.1-55.4); Globulin 3.4 g/dL (2.2-4.2); Glucose 110 mg/dL (74-106); Potassium 4.2 mmol/L (3.5-5.1); Protein, Total 7.3 g/dL (6.4-8.2); Sodium Level 138 mmol/L (136-145); T4 Free Direct 1.21 ng/dL (0.76-1.46); Thyroid Stim Hormone (TSH) 2.32 uIU/mL (0.358-3.74)
[2023-07-18 19:07] LABS: Free Kappa Light Chains 24.6 mg/L (3.3-19.4); Free Lambda Light Chains 15.5 mg/L (5.7-26.3); Vitamin B1, Thiamine 133.9 nmol/L (66.5-200.0)
== END 2023-07-13 18:00 | disposition home or self-care (01) ==
LOC: MTLAB 09:35
PROVIDERS: Psychiatry & Neurology Neurology; Family Provider Family Medicine; PCP Family Medicine; Referring Provider Internal Medicine Cardiovascular Disease; Visit Provider Internal Medicine Cardiovascular Disease
DX: I48.11 Longstanding persistent atrial fibrillation (principal); Z79.01 Long term (current) use of anticoagulants; E78.00 Pure hypercholesterolemia, unspecified; E78.2 Mixed hyperlipidemia; G62.9 Polyneuropathy, unspecified; E03.9 Hypothyroidism, unspecified
CPT/HCPCS: 36415; 80053; 80061; 80076; 82607; 82746; 83883; 84425; 84439; 84443; 85027; 85610

== ENCOUNTER → 2023-08-02 | Outpatient (CLI) | payer MEDICARE, SELFPAY ==
--- NOTE | 2023-08-02 16:24 | MRI_ITS ---
STUDY: MRI BRAIN WITHOUT CONTRAST REASON FOR EXAM: Male, 77 years old. Parkinsonism, tremors TECHNIQUE: Standardized multiplanar fat and water weighted pulse sequences were obtained. COMPARISON: None. FINDINGS: There is moderate cerebral atrophy with widening of the extra-axial spaces and ventricular dilatation. There are multiple white matter hyperintensities, distributed throughout the deep white matter tracts of the cerebral hemispheres, consistent with moderate chronic white matter ischemic changes. There is no evidence for recent intracranial ischemia or other cause of cytotoxic edema on diffusion weighted imaging (DWI). Punctate areas of hemosiderin staining within the peripheral cortex of the brain suggestive of amyloid angiopathy. Mid brain iron stores are preserved. Normal bilateral basal ganglia. Normal thalami. There is no extra-axial fluid accumulation. Normal flow voids within the major intracranial circulation suggesting patency by spin echo criteria. Normal sella turcica, pituitary gland, infundibular stalk, optic chiasm and hypothalamus. Normal tectal plate and pineal gland. Normal midbrain, talon and medulla. Normal cerebellum. Normal basal cisterns. Normal bilateral temporal bones. Normal bilateral internal auditory canals. There are bilateral ocular lens implants with otherwise normal intraorbital contents. Normal visualized paranasal sinuses. Normal calvarium and skull base. Normal visualized soft tissue structures. Normal visualized upper cervical spine. MRI/Brain without Contrast IMPRESSION: Involutional changes of the brain, as described above. No acute infarct. Suspect amyloid angiopathy. Electronically Signed: Ankur Benson MD at 23:32 EDT ,
== END | disposition home or self-care (01) ==
LOC: MRI 16:22
PROVIDERS: PCP Family Medicine; Referring Provider Psychiatry & Neurology Neurology; Visit Provider Psychiatry & Neurology Neurology
DX: G20.C Parkinsonism, unspecified (principal)
CPT/HCPCS: 70551

== ENCOUNTER 2023-09-05 10:38 | Outpatient (RCR) | payer MEDICARE, SELFPAY ==
[2023-07-16 04:57] VITALS: BMI 29.2
[2023-09-05 12:31] LABS: International Normalized Ratio 2.5; Prothrombin Time (Protime)PT. 27.2 SECONDS (11.7-14.9)
[2023-09-05 13:19] LABS: Hemoglobin A1c 5.7 % (3.8-5.6)
[2023-09-08 10:07] LABS: Albumin 3.7 g/dL (2.9-4.4); Alpha-1-Globulins 0.2 g/dL (0.0-0.4); Alpha-2-Globulins 0.6 g/dL (0.4-1.0); Immunoglobulin A 272 mg/dL (61-437); Immunoglobulin G 992 mg/dL (603-1613); Immunoglobulin M 138 mg/dL (15-143); PROEL- TOTAL PROTEIN 6.4 g/dL (6.0-8.5)
== END 2023-09-14 18:00 | disposition home or self-care (01) ==
LOC: MTLAB 10:38
PROVIDERS: Psychiatry & Neurology Neurology; Family Provider Family Medicine; PCP Family Medicine; Referring Provider Internal Medicine Cardiovascular Disease; Visit Provider Internal Medicine Cardiovascular Disease
DX: I48.11 Longstanding persistent atrial fibrillation (principal); Z79.01 Long term (current) use of anticoagulants; G62.9 Polyneuropathy, unspecified; R73.9 Hyperglycemia, unspecified
CPT/HCPCS: 36415; 82784; 83036; 84165; 85610; 86334; 86335

== ENCOUNTER 2023-12-01 11:10 | Outpatient (RCR) | payer MEDICARE, SELFPAY ==
[2023-09-15 04:18] VITALS: BMI 29.2
[2023-11-16 10:08] LABS: International Normalized Ratio 2.1; Prothrombin Time (Protime)PT. 23.4 SECONDS (11.7-14.9)
[2023-11-30 14:37] LABS: AST(SGOT) 20 U/L (15-37); Alanine Aminotransfer ALT/SGPT 24 U/L (16-61); Albumin, Serum 3.5 g/dL (3.2-5.0); Alkaline Phosphatase 51 U/L (45-117); Bilirubin, Direct 0.16 mg/dL (0.00-0.30); Cholesterol 202 mg/dL (200); Globulin 3.3 g/dL (2.2-4.2); High Density Lipoprotein 48 mg/dL; Protein, Total 6.8 g/dL (6.4-8.2); Triglycerides 111 mg/dL; Very Low Density Lipoprotein 22 mg/dL (5-40)
[2023-12-01 12:59] LABS: International Normalized Ratio 2.3; Prothrombin Time (Protime)PT. 25.2 SECONDS (11.7-14.9)
== END 2023-12-14 18:00 | disposition home or self-care (01) ==
LOC: MTLAB 11:10
PROVIDERS: Nurse Practitioner Gerontology; Family Provider Family Medicine; PCP Family Medicine; Referring Provider Internal Medicine Cardiovascular Disease; Visit Provider Internal Medicine Cardiovascular Disease
DX: I48.11 Longstanding persistent atrial fibrillation (principal); Z79.01 Long term (current) use of anticoagulants; E78.00 Pure hypercholesterolemia, unspecified
CPT/HCPCS: 36415; 80061; 80076; 85610

== ENCOUNTER → 2023-12-11 | Outpatient (CLI) | payer MEDICARE, SELFPAY ==
--- NOTE | 2023-12-11 06:53 | ECHOD_ITS ---
Reason For Study: ATRIAL FIBRILLATION Procedure This was a 2D Doppler, Color Flow transthoracic echocardiogram. Exam performed in department. Left Ventricle Normal LV size. Mild concentric left ventricular hypertrophy. Left ventricular systolic function is normal. The left ventricular ejection fraction is 60 %. Stage 3 diastolic dysfunction. No regional wall motion abnormalities noted. Right Ventricle Normal RV size. Normal systolic function. Atria Normal left atrium. Normal right atrium. Mitral Valve Normal mitral valve. Tricuspid Valve Normal tricuspid valve. Mild (1+) tricuspid valve insufficiency. Pulmonary artery systolic pressure is 34 mmHg. Aortic Valve Trisinus/trileaflet aortic valve. Mild focal aortic valve calcification. Pulmonic Valve Normal pulmonic valve. Great Vessels Normal aortic root. The pulmonary artery is normal size. Normal inferior vena cava. Pericardium/Pleural No pericardial effusion. MMode/2D Measurements & Calculations LVIDd: 4.0 cm IVSd: 1.3 cm Ao root diam: 3.2 cm LVIDs: 3.0 cm LVPWd: 1.4 cm RVDd: 2.5 cm FS: 26.2 % LAV(MOD-bp): 94.9 ml LVAd ap4: 22.3 cm2 LVAd ap2: 16.8 cm2 LAV(MOD-bp) Indexed: 48.2 ml/m2 LVLd ap4: 7.4 cm LVLd ap2: 6.5 cm LAV(MOD-sp2): 90.9 ml EDV(MOD-sp4): 56.2 ml EDV(MOD-sp2): 36.5 ml LAV(MOD-sp4): 90.8 ml EDV(sp4-el): 57.1 ml EDV(sp2-el): 36.7 ml LVAs ap4: 13.4 cm2 LVAs ap2: 10.1 cm2 LVLs ap4: 6.8 cm LVLs ap2: 5.6 cm ESV(MOD-sp4): 22.3 ml ESV(MOD-sp2): 16.2 ml ESV(sp4-el): 22.4 ml ESV(sp2-el): 15.4 ml EF(MOD-sp4): 60.2 % EF(MOD-sp2): 55.7 % EF(sp4-el): 60.7 % SV(MOD-sp4): 33.8 ml SV(MOD-sp2): 20.4 ml SV(sp4-el): 34.6 ml LA dimension(2D): 5.0 cm LA A4 area: 27.4 cm2 RA A4 area: 21.8 cm2 Time Measurements MV dec time: 0.16 sec Doppler Measurements & Calculations MV E max roe: 93.5 cm/sec Lat Peak E' Roe: 9.4 cm/sec Med Peak E' Roe: 7.9 cm/sec MV A max roe: 33.3 cm/sec E/E' lat: 10.0 E/E' med: 11.9 MV E/A: 2.8 Ao V2 max: 139.9 cm/sec LV V1 max: 110.3 cm/sec PA V2 max: 82.9 cm/sec Ao max P.8 mmHg LV V1 max P.9 mmHg PA V2 mean: 56.4 cm/sec Ao V2 mean: 95.5 cm/sec LV V1 mean P.8 mmHg Ao mean P.1 mmHg LV V1 mean: 80.2 cm/sec Ao V2 VTI: 29.1 cm LV V1 VTI: 22.0 cm AV (velocity ratio): 0.76 PI dec slope: 176.1 cm/sec2 TR max roe: 273.1 cm/sec TR max P.8 mmHg ECHO/Echo Complete Interpretation Summary Normal LV size. Left ventricular systolic function is normal. No regional wall motion abnormalities noted. The left ventricular ejection fraction is 60 %. Stage 3 diastolic dysfunction. Mild concentric left ventricular hypertrophy. Ordering Physician: Wendi Otto Referring Physician: Dorinda Caballero Performed By: Jennifer Mccrary RDCS, RVT
--- OUTSIDE RECORDS SUMMARY | 2023-12-11 06:56 | XMS RPT_ITS | CCD ---
Author Name Unknown Address [address] [place] [address] [facility] Team Providers Care Coremaker Floor Name Role Phone Eunice RN, Marija A Unavailable Unavailable Eunice RN, Marija A Unavailable Unavailable Eunice RN, Marija A Unavailable Unavailable RICARDO Deleon, Sheila Dobbs Unavailable Unavailalex Deleon RN, Sheila Dobbs Unavailable Unavailabl e Sandor, Marley Unavailable Unavailable Eunice RN, Marija A Unavailable Unavailable Eunice SILVA, Marija A Unavailable Unavailable RICARDO Deleon, Sheila Dobbs Unavailable Unavailalex Dawson RN, Marija A Unavailable Unavailable Eunice RN, Marija A Unavailable Unavailable Eunice RN, Marija A Unavailable Unavailable Eunice RN, Marija A Unavailable Unavailable Eunice RN, Marija A Unavailable Unavailable Eunice RN, Marija A Unavailable Unavailable Eunice RN, Marija A Unavailable Unavailable Eunice RN, Marija A Unavailable Unavailable Dorinda Caballero Primary Care Provider Garcia, Ryan S Unavailable Dorinda Caballero Primary Care Provider Garcia, Corolla S Unavailable DORINDA CABALLERO Primary Care Unavailable ANTHONY, JANELL Referring Unavailable ALEXIS DORINDA SILVIANO Primary Care Unavailable ANTHONY, JANELL Referring Unavailable DORINDA CABALLERO SILVIANO Primary Care Unavailable CRUZ, JANELL Referring Unavailable ANTHONY, JANELL Referring Unavailable DORINDA CABALLERO SILVIANO Primary Care Unavailable Dorinda Caballeroer Primary Care Provider [phone] Garcia, Ryan S Unavailable Dorinda Caballero Primary Care Provider Garcia, Ryan S Unavailable DORINDA CABALLERO Primary Care Unavailable JANELL CRUZ Attending Unavailable DORINDA CABALLERO Referring Unavailable DORINDA CABALLERO Primary Care Unavailable JANELL CRUZ Referring Unavailable DORINDA CABALLERO Primary Care Unavailable JANELL CRUZ Attending Unavailable DORINDA CABALLERO Referring Unavailable Allergies Allergy Classification Reported Allergen(s) Allergy Type Date of Onset Reaction(s) Facility (17 sources) Hmg-Coa Reductase Inhibitors (Statins) drug allergy 3 Myalgias [facility] Work Phone: (6 sources) HMG-CoA reductase inhibitor; Translations: [ICFIPJP-ACT-TWC REDUCTASE INHIBITORS] Drug Intolerance 2 Myalgia [facility] Medications Completed/Discontinued Medications Medication Drug Class(es) Dates Sig (Normalized) Sig (Original) acetaminophen 325 mg oral tablet (3 sources) Start: 05-13-2022 End: 05-16-2023 take 3 tablets by mouth every six hours acetaminophen (TYLENOL) 325 mg tablet Take 3 tablets by mouth every 6 hours. 0 05/13/2022 05/16/2023 Discontinued Problems Active Problems Problem Classification Problem Date Documented Da te Episodic/Chronic Cardiac dysrhythmias (20 sources) Persistent atrial fibrillation; Translations: [Atrial fibrillation] Onset: 02-22-2011 04-13-2016 Chronic Coronary atherosclerosis and other heart disease (20 sources) Coronary atherosclerosis; Translations: [Atherosclerotic heart disease of [place] coronary artery without angina pectoris] Onset: 02-22-2011 Resolved: 10-03-2016 10-03-2016 Chronic Disorders of lipid metabolism (17 sources) Hyperlipidemia; Translations: [Hyperlipidemia, unspecified] Onset: 02-22-2011 02-22-2011 Chronic Essential hypertension (20 sources) Benign hypertension; Translations: [Hypertensive disorder] Onset: 02-22-2011 02-22-2011 Chronic Occlusion or stenosis of precerebral arteries (20 sources) Internal carotid artery stenosis; Translations: [Occlusion and stenosis of right carotid artery] Onset: 03-21-2017 Chronic Other nutritional; endocrine; and metabolic disorders (20 sources) Body mass index (BMI) 34.0-34.9, adult; Translations: [Body mass index (BMI) 34.0-34.9, adult] Onset: 10-17-2013 Resolved: 04-20-2016 10-17-2013 Chronic Unclassified (8 sources) Long-term drug therapy; Translations: [Other group home (current) drug therapy] Onset: 02-22-2011 02-22-2011 Unclassified (8 sources) Warfarin therapy started; Translations: [medical terminologist (current) use of anticoagulants] Onset: 04-20-2016 04-20-2016 Past or Other Problems Problem Classification Problem Date Documented Date Episodic/Chronic Abdominal pain (20 sources) Right lower quadrant pain; Translations: [Right lower quadrant pain] Onset: 06-10-2013 Resolved: 10-03-2016 10-03-2016 Episodic Other aftercare (18 sources) Other terminal make up operator (current) drug therapy; Translations: [medical terminologist (current) use of anticoagulants] Onset: 02-22-2011 02-22-2011 Episodic Other circulatory disease (17 sources) Carotid bruit; Translations: [Other specified symptoms and signs involving the circulatory and respiratory systems] Onset: 02-22-2011 02-22-2011 Episodic Other nervous system disorders (20 sources) Spasm; Translations: [Other muscle spasm] Onset: 04-21-2015 Resolved: 10-03-2016 10-03-2016 Episodic Other nutritional; endocrine; and metabolic disorders (20 sources) Body mass index (BMI) 28.0-28.9, adult; Translations: [Body mass index (BMI) 29.0-29.9, adult] Onset: 04-21-2015 04-21-2015 Episodic Other nutritional; endocrine; and metabolic disorders (5 sources) Body mass index (BMI) 29.0-29.9, adult; Translations: [Body mass index (BMI) 29.0-29.9, adult] Onset: 04-21-2015 04-20-2016 Episodic Other screening for suspected conditions (not mental disorders or infectious disease) (2 sources) Patient encounter status; Translations: [Encounter for screening for cardiovascular disorders] Onset: 09-20-2021 Episodic Residual codes; unclassified (4 sources) Other specified postprocedural states; Translations: [S/P carotid endarterectomy] Onset: 05-31-2022 Episodic Unclassified (20 sources) Family history of stroke; Translations: [Body mass index (BMI) 29.0-29.9, adult] Onset: 04-21-2015 04-16-2014 Episodic Unclassified (1 source) Finding of body mass index; Translations: [Body mass index (BMI) 28.0-28.9, adult] Onset: 04-21-2015 04-21-2015 Results Test Name Value Interpretation Reference Range Facil ity Vital Signs Date Time Vital Sign Value Performing Clinician Facility 05-16-2023 14:31-0400 Body height 172.7 cm Janell Cruz APRN.[employer] Work Phone: [facility] 05-16-2023 14:31-0400 Body weight 86.27 kg Janell Cruz APRN.[employer] Work Phone: [facility] 05-16-2023 14:31-0400 Diastolic blood pressure 70 mm[Hg] Janell Cruz APRN.[employer] Work Phone: [facility] 05-16-2023 14:31-0400 Heart rate 82 /min Janell Cruz APRN.[employer] Work Phone: [facility] 05-16-2023 14:31-0400 SaO2% (BldA) [Mass fraction] 99 % Janell Cruz APRN.[employer] Work Phone: [facility] 05-16-2023 14:31-0400 Systolic blood pressure 126 mm[Hg] Janell Cruz APRN.[employer] Work Phone: [facility] 05-31-2022 10:04-0400 Body height 172.7 cm Janell Cruz APRN.[employer] Work Phone: [facility] 05-31-2022 10:04-0400 Body weight 84.82 kg Janell Cruz APRN.[employer] Work Phone: [facility] 05-31-2022 10:04-0400 Diastolic blood pressure 70 mm[Hg] Janell Cruz APRN.[employer] Work Phone: [facility] 05-31-2022 10:04-0400 Heart rate 80 /min Janell Cruz APRN.[employer] Work Phone: [facility] 05-31-2022 10:04-0400 Respiratory rate 16 /min Janell Cruz APRN.[employer] Work Phone: [facility] 05-31-2022 10:04-0400 Systolic blood pressure 132 mm[Hg] Janell Cruz APRN.[employer] Work Phone: [facility] 04-27-2022 10:06-0400 Body height 172.7 cm Pst 1 [facility] 04-27-2022 10:06-0400 Body temperature 97.2 [degF] Pst 1 [facility] 04-27-2022 10:06-0400 Body weight 84.82 kg Pst 1 [facility] 04-27-2022 10:06-0400 Diastolic blood pressure 100 mm[Hg] Pst 1 [facility] 04-27-2022 10:06-0400 Heart rate 68 /min Pst 1 [facility] 04-27-2022 10:06-0400 Respiratory rate 16 /min Pst 1 [facility] 04-27-2022 10:06-0400 SaO2% (BldA) [Mass fraction] 100 % Pst 1 [facility] 04-27-2022 10:06-0400 Systolic blood pressure 147 mm[Hg] Pst 1 [facility] 03-08-2022 11:24-0400 Body height 172.7 cm Janell Cruz APRN.[employer] Work Phone: [facility] 03-08-2022 11:24-0400 Body weight 86.91 kg Janell Cruz APRN.[employer] Work Phone: [facility] 03-08-2022 11:24-0400 Diastolic blood pressure 96 mm[Hg] Janell Cruz APRN.[employer] Work Phone: [facility] 03-08-2022 11:24-0400 Heart rate 84 /min Janell Cruz APRN.[employer] Work Phone: [facility] 03-08-2022 11:24-0400 Respiratory rate 16 /min Janell Cruz APRN.[employer] Work Phone: [facility] 03-08-2022 11:24-0400 SaO2% (BldA) [Mass fraction] 98 % Janell Cruz APRN.[employer] Work Phone: [facility] 03-08-2022 11:24-0400 Systolic blood pressure 154 mm[Hg] Janell Cruz APRN.[employer] Work Phone: [facility] 04-13-2017 11:25-0400 BMI (Body Mass Index) 27.21 kg/m2 [facility] Work Phone: 04-13-2017 11:25-0400 BP Diastolic 68 mm[Hg] Marleyshanell Patten [facility] Work Phone: 04-13-2017 11:25-0400 BP Systolic 104 mm[Hg] [facility] Work Phone: 04-13-2017 11:25-0400 Pulse (Heart Rate) 74 /min [facility]leyshanell [facility] Work Phone: 04-13-2017 11:25-0400 Weight 81.19 kg Marleyshanell [facility] Work Phone: 10-18-2016 09:15-0500 BMI (Body Mass Index) 30.41 kg/m2 Marija Dawson [facility] Work Phone: 10-18-2016 09:15-0500 Body weight 90.72 kg Marija Dawson RN [facility] Work Phone: 10-18-2016 09:15-0500 BP Diastolic 70 mm[Hg] Marija Dawson RN [facility] Work Phone: 10-18-2016 09:15-0500 BP Systolic 110 mm[Hg] Marija Dawson RN [facility] Work Phone: 10-18-2016 09:15-0500 BSA (Body Surface Area) 2.05 m2 Marija Dawson RN [facility] Work Phone: 10-18-2016 09:15-0500 Pulse (Heart Rate) 80 /min Marija Dawson RN [facility] Work Phone: 10-18-2016 09:15-0500 Respiratory Rate 20 /min Marija Dawson RN [facility] Work Phone: 10-18-2016 09:15-0500 Weight 90.72 kg Marija Dawson RN [facility] Work Phone: 04-21-2015 09:25-0400 Heart rate 77 /min Marija Dawson RN [facility] Work Phone: 04-16-2014 10:13-0400 Heart rate 386 ms Marija Dawson RN [facility] Work Phone: 06-10-2013 11:54-0400 Body Temperature 100.5 [degF] Marija Dawson RN [facility] Work Phone: 02-07-2012 10:43-0400 Height 172.72 cm Marija Dawson RN [facility] Work Phone: Encounters Encounter Date Encounter Type Care Provider Facility Start: 05-16-2023 End: 05-16-2023 ambulatory DORINDA SILVIANO [facility] Facility:[facility] Start: 05-16-2023 End: 05-16-2023 Patient encounter procedure Janell Cruz APRN.CNP Work Phone: [facility] Procedures Date Procedure Procedure Detail Performing Clinician Start: 02-28-2022 Ct angiography neck w/contrast/noncontrast Janell Cruz APRN.[employer] Work Phone: Start: 04-13-2017 End: 04-13-2017 TALA Hamilton PA-C Work Phone: Start: 04-13-2017 End: 04-13-2017 Follow Up Appt 6 months Maritza Hamilton PA-C Work Phone: Start: 04-13-2017 End: 04-13-2017 TALA Hamilton PA-C Work Phone: Start: 04-13-2017 End: 04-13-2017 Follow Up Appt 6 months Maritza Hamilton PA-C Work Phone: Start: 01-11-2017 End: 01-18-2017 INR in Platelet poor plasma by Coagulation assay Ryan Zelaya MD Start: 01-11-2017 End: 01-18-2017 Coagulation factor induced.INR assay in platelet poor plasma Ryan Zelaya MD Start: 10-18-2016 End: 10-18-2016 Follow Up Appt 6 months Rinku Rush Start: 10-18-2016 End: 10-18-2016 RAUL Zelaya MD Start: 10-18-2016 End: 10-18-2016 Documentation of current medications Marija Dawson RN Start: 10-18-2016 End: 10-18-2016 Follow Up Appt 6 months Rinku Rush Start: 10-18-2016 End: 10-18-2016 RAUL Zelaya MD Start: 04-20-2016 End: 04-20-2016 TALA Hamilton PA-C Work Phone: Start: 04-20-2016 End: 04-20-2016 Follow Up Appt 6 months Maritza Hamilton PA-C Work Phone: Start: 04-20-2016 End: 05-18-2016 INR in Platelet poor plasma by Coagulation assay Ryan Zelaya MD Start: 04-20-2016 End: 04-20-2016 Dietary management education, guidance, and counseling Marija Dawson RN Start: 04-20-2016 End: 05-18-2016 Coagulation factor induced.INR assay in platelet poor plasma Ryan Zelaya MD Start: 04-20-2016 End: 04-20-2016 TALA Hamilton PA-C Work Phone: Start: 04-20-2016 End: 04-20-2016 Follow Up Appt 6 months Maritza Hamilton PA-C Work Phone: Start: 12-01-2015 End: 04-05-2016 INR in Platelet poor plasma by Coagulation assay Ryan Zelaya MD Start: 12-01-2015 End: 04-05-2016 Coagulation factor induced.INR assay in platelet poor plasma Ryan Zelaya MD Start: 11-24-2015 End: 04-12-2016 *Hepatic Function Panel Rinku Rush Start: 11-24-2015 End: 04-12-2016 Lipid 1996 panel - Serum or Plasma Ryan Zelaya MD Start: 11-24-2015 End: 04-12-2016 *Hepatic Function Panel Rinku Rush Start: 11-24-2015 End: 04-12-2016 Lipid panel [AGGREGATE] Rinku Rush Start: 10-20-2015 End: 10-20-2015 Follow Up Appt 6 months Rinku Rush Start: 10-20-2015 End: 10-20-2015 RAUL Zelaya MD Start: 10-20-2015 End: 10-20-2015 Follow Up Appt 6 months Rinku Rush Start: 10-20-2015 End: 10-20-2015 RAUL Zelaya MD Start: 04-21-2015 End: 05-13-2015 *BMP Maritza Hamilton PA-C Work Phone: Start: 04-21-2015 End: 04-21-2015 CARTON FOLDER Maritza Hamilton PA-C Work Phone: Start: 04-21-2015 End: 04-22-2015 Documentation of current medications Maritza Hamilton PA-C Work Phone: Start: 04-21-2015 End: 04-21-2015 Ecg routine ecg w/least 12 lds w/i&r Maritza Hamilton PA-C Work Phone: Start: 04-21-2015 End: 04-21-2015 Follow Up Appt 6 months Maritza Hamilton PA-C Work Phone: Start: 04-21-2015 End: 05-13-2015 Magnesium [Mass/volume] in Serum or Plasma Maritza Hamilton PA-C Work Phone: Start: 04-21-2015 End: 05-13-2015 *BMP Maritza Hamilton PA-C Work Phone: Start: 04-21-2015 End: 04-21-2015 CARTON FOLDER Maritza Hamilton PA-C Work Phone: Start: 04-21-2015 End: 04-22-2015 Documentation of current medications Maritza Hamilton PA-C Work Phone: Start: 04-21-2015 End: 04-21-2015 Electrocardiogram, complete Maritza Hamilton PA-C Work Phone: Start: 04-21-2015 End: 04-21-2015 Follow Up Appt 6 months Maritza Hamilton PA-C Work Phone: Start: 04-21-2015 End: 05-13-2015 Magnesium Maritza Hamilton PA-C Work Phone: Start: 11-24-2014 End: 11-24-2014 *Hepatic Function Panel Maritza Hamilton PA-C Work Phone: Start: 11-24-2014 End: 11-24-2014 Lipid 1996 panel - Serum or Plasma Maritza Hamilton PA-C Work Phone: Start: 11-24-2014 End: 11-24-2014 *Hepatic Function Panel Maritza Hamilton PA-C Work Phone: Start: 11-24-2014 End: 11-24-2014 Lipid panel [AGGREGATE] Maritza Hamilton PA-C Work Phone: Start: 10-21-2014 End: 10-21-2014 Follow Up Appt 6 months Rinku Rush Start: 10-21-2014 End: 10-21-2014 RAUL Zelaya MD Start: 10-21-2014 End: 10-21-2014 Follow Up Appt 6 months Rinku Rush Start: 10-21-2014 End: 10-21-2014 RAUL Zelaya MD Start: 05-28-2014 End: 05-28-2014 *Hepatic Function Panel Rinku Rush Start: 05-28-2014 End: 05-28-2014 Lipid 1996 panel - Serum or Plasma Ryan Zelaya MD Start: 05-28-2014 End: 05-28-2014 *Hepatic Function Panel Rinku Rush Start: 05-28-2014 End: 05-28-2014 Lipid panel [AGGREGATE] Rinku Rush Start: 04-16-2014 End: 04-16-2014 CARTON FOLDER Maritza Hamilton PA-C Work Phone: Start: 04-16-2014 End: 04-16-2014 Follow Up Appt 6 months Maritza Hamilton PA-C Work Phone: Start: 04-16-2014 End: 04-16-2014 TALA Hamilton PA-C Work Phone: Start: 04-16-2014 End: 04-16-2014 Follow Up Appt 6 months Maritza Hamilton PA-C Work Phone: Start: 12-24-2013 End: 12-24-2013 *Hepatic Function Panel Rinku Rush Start: 12-24-2013 End: 12-24-2013 Lipid 1996 panel - Serum or Plasma Ryan Zelaya MD Start: 12-24-2013 End: 12-24-2013 *Hepatic Function Panel Rinku Rush Start: 12-24-2013 End: 12-24-2013 Lipid panel [AGGREGATE] Rinku Rush Start: 10-17-2013 End: 04-02-2014 Follow Up Appt 6 months Rinku Rush Start: 10-17-2013 End: 12-23-2013 INR in Platelet poor plasma by Coagulation assay Ryan Zelaya MD Start: 10-17-2013 End: 04-02-2014 MMM Ryan Zelaya MD Start: 10-17-2013 End: 12-23-2013 Coagulation factor induced.INR assay in platelet poor plasma Ryan Zelaya MD Start: 10-17-2013 End: 04-02-2014 Follow Up Appt 6 months Rinku Rush Start: 10-17-2013 End: 04-02-2014 MMM Ryan Zelaya MD Start: 04-15-2013 End: 08-07-2013 *Hepatic Function Panel Rinku Rush Start: 04-15-2013 End: 08-07-2013 Lipid 1996 panel - Serum or Plasma Ryan Zelaya MD Start: 04-15-2013 End: 08-07-2013 *Hepatic Function Panel Rinku Rush Start: 04-15-2013 End: 08-07-2013 Lipid panel [AGGREGATE] Rinku Rush Start: 03-28-2013 End: 03-28-2013 TALA Zelaya MD Start: 03-28-2013 End: 03-28-2013 Follow Up Appt 6 months Rinku Rush Start: 03-28-2013 End: 03-28-2013 TALA Zelaya MD Start: 03-28-2013 End: 03-28-2013 Follow Up Appt 6 months Rinku Rush Start: 08-16-2012 End: 09-04-2012 *Hepatic Function Panel Rinku Rush Start: 08-16-2012 End: 09-04-2012 Lipid 1996 panel - Serum or Plasma Ryan Zelaya MD Start: 08-16-2012 End: 09-04-2012 *Hepatic Function Panel Rinku Rush Start: 08-16-2012 End: 09-04-2012 Lipid panel [AGGREGATE] Rinku Rush Start: 07-24-2012 End: 07-24-2012 Follow Up Appt 6 months Rinku Rush Start: 07-24-2012 End: 07-24-2012 Follow Up Appt 6 months Rinku Rush Start: 02-07-2012 End: 02-07-2012 Follow Up Appt 6 months Rinku Rush Start: 02-07-2012 End: 02-07-2012 Follow Up Appt 6 months Rinku Rush History of carotid endarterectomy History of left-sided carotid endarterectomy Janell Cruz APRN.[facility] Work Phone: History of carotid endarterectomy History of left-sided carotid endarterectomy Ct (I-Stat) History of carotid endarterectomy History of left-sided carotid endarterectomy Janell Cruz APRN.[employer] Work Phone: History of carotid endarterectomy S/P carotid endarterectomy Janell Cruz SPOT CHECKER.[employer] Work Phone: History of carotid endarterectomy S/P carotid endarterectomy Janell Crzu SPOT CHECKER.[employer] Work Phone: History of carotid endarterectomy History of left-sided carotid endarterectomy Janell Cruz SPOT CHECKER.[employer] Work Phone: Plan of Treatment Date Care Activity Detail Author Start: 05-13-2025 DIABETES SCREEN DIABETES SCREEN [facility] Start: 02-24-2025 DIABETES SCREEN DIABETES SCREEN [facility] Start: 09-20-2024 DIABETES SCREEN DIABETES SCREEN [facility] Start: 06-16-2023 Influenza vaccination INFLUENZA (#1) [facility] Start: 05-09-2023 End: 09-18-2023 Duplex scan extracranial art compl bi study US CAROTID BILAT Radiology Routine S/P carotid endarterectomy History of left-sided carotid endarterectomy Internal carotid artery stenosis, bilateral Expected: 05/09/2023, Expires: 09/18/2023 [facility] Work Phone: Payers Date Payer Category Payer Medicare A[employer] MEDICARE A ETNA MEDICARE PPO [id number] 2021-Present [phone] [address] [place] [address] PPO [id number] 2021 Medicare AETNA MEDICARE A ETNA MEDICARE PPO [id number] 2021-Present [phone] [address] [place] [address] PPO [id number] 2021 Medicare [id number] 2018 Medicare [id number] Social History Date Type Detail Facility Start: 03-21-2017 End: 05-31-2022 Tobacco smoking status NHIS Ex-smoker [facility] End: 10-16-2001 History of tobacco use Pipe Smoker [facility] End: 10-16-2001 History of tobacco use Cigar Smoker [facility] Start: 03-21-2017 End: 05-31-2022 Tobacco use and exposure Smokeless tobacco non-user [facility] Start: 09-30-2021 End: 05-16-2023 Alcohol intake Current drinker of alcohol (finding) [facility] Start: 03-21-2017 History SDOH Alcohol Comment rare [facility] Start: 1945 Sex Assigned At Male C [facility] Start: 02-14-2022 End: 05-31-2022 Exposure to SARS-CoV-2 (event) Not sure [facility] End: 10-16-2001 History of tobacco use Current smoker [facility] Start: 07-11-2022 End: 07-21-2022 Exposure to SARS-CoV-2 (event) Unable to assess [facility] Start: 11-11-2022 End: 05-16-2023 History of Social function [facility] Start: 11-11-2022 End: 05-16-2023 Tobacco use panel [facility] National Score (1-10 0), lower number is lower risk 51 [facility] Start: 03-01-2021 Gender identity Identifies as male gender (finding) [facility] Start: 02-24-2022 Sexual orientation Heterosexual (jorge a hackett) [facility] Medical Equipment Procedure Code Equipment Code Equipment Origin al Text Equipment Identifier Dates Patch Xenosure B ovine Pericardial Tissue 8x.8cm Vascular Sterile - [id number] Start: 05-12-2022 Clinical Notes 02-28-2022 to 05-16-2023 Janell Cruz APRN.[employer] - 05/16/2023 2:51 PM EDTPatient InstructionsTelephone Encounter - Janell Cruz APRN.[employer] - 08/19/2022 3:45 PM EDTJanell Cruz APRN.[employer] - 05/31/2022 10:30 AM EDT Note Date & Type Note Facility 05-16-2023 Note HNO ID: [id number] Author: Janell Cruz APRN.[employer] Service: ? Author Type: Nurse Practitioner Type: Progress Notes Filed: 05/16/2023 3:02 PM Note Text: Gale Powers 77 year old male who underwent right carotid endarterectomy with bovine patch angioplasty in April [address] Raza. He remains asymptomatic, with no s/s of TIA or stroke, including amaurosis fugax, slurred speech, facial drooping, or weakness in an extremity. He is compliant with his medications and he returns today for routine noninvasive follow-up. He is not on statin d/t allergy and no asa d/t warfarin. Former smoker having quit in 2001. We reviewed the symptoms of TIA/stroke including weakness or numbness in an extremity, slurred speech, facial droop, amaurosis fugax, and he does not have any symptoms. He understands that he/she should call or go to the ED should any of these symptoms develop and that delay could result in stroke. PAST MEDICAL HISTORY Diagnosis Date Atrial fibrillation (HCC) Carotid stenosis Dyspnea Hypertensive disorder Stenosis of right carotid artery 03/21/2017 PAST SURGICAL HISTORY Procedure Laterality Date APPENDECTOMY CAROTID ENDARTERECTOMY Left 2006 CAROTID ENDARTERECTOMY Right 05/12/2022 Current Outpatient Medications on File Prior to Visit Medication Sig MEDICATION, NON-DATABASE prostavive MEDICATION, NON-DATABASE Clinical Prostate MEDICATION, NON-DATABASE Assure 2 MEDICATION, NON-DATABASE Shield warfarin sodium (COUMADIN ORAL) Take 8 mg by mouth once daily. ASHWAGANDHA ROOT EXTRACT ORAL Take by mouth once daily. cyanocobalamin, vitamin B-12, (VITAMIN B12 ORAL) Take 1 tablet by mouth once daily. MEDICATION, NON-DATABASE Take by mouth once daily. circumin levothyroxine (SYNTHROID) 50 mcg tablet Take 50 mcg by mouth once daily. No current facility-administered medications on file prior to visit. ALLERGIES Allergen Reactions Stfmefo-Chd-Hdb Red* Myalgia BP 126/70 (BP Site: Left Arm, BP Position: Sitting, BP Cuff Size: Large Adult) Pulse 82 Ht 5' 8 (1.727 m) Wt 190 lb 3.2 oz (86.3 kg) SpO2 99% BMI 28.92 kg/m? PHYSICAL EXAM: General Appearance: Well appearing, alert, in no acute distress, well-hydrated, well nourished. Skin: Skin color, texture, turgor normal, no suspicious rashes or lesions. Head: Normocephalic, no masses, lesions, tenderness or abnormalities. Eyes: Anicteric sclera. Extraocular movements are intact. Ears: External ears normal, hearing is adequate. Neck: Supple, no bruits. Lungs: Breathing is easy and unlabored. Heart: Irreg without gallop or rubs. Extremities: No deformities, edema, skin discoloration, clubbing or cyanosis. Neurologic: Gait normal. Normal cognition and motor skills. Sensation and strength grossly intact. Current duplex findings: 05/09/23 R ICA 0-29%, psv 87 L ICA 0-29%, psv 92 ASSESSMENT/PLAN: (I65.23) Internal carotid artery stenosis, bilateral (primary encounter diagnosis), (Z98.890) History of left-sided carotid endarterectomy Comment: Asymptomatic and stable with patent R CEA and no progression of stenosis in B ICA on current US Plan: Continue current rx; Will repeat carotid US in 1 year FOLLOW-UP: Will follow-up with [facility] in 1 year after repeat carotid US. Pt encouraged to call with any questions or concerns. The patient is currently taking a statin: No. Reason: allergy The patient is currently taking aspirin: No. Reason: Warfarin I spent a total of 30 minutes on the date of the service which included preparing to see the patient, [id number] patient care, completing clinical documentation, obtaining and/or reviewing separately obtained history, performing a medically appropriate examination, counseling and educating the patient/family/caregiver, ordering medications, tests, or procedures, communicating with other HCPs (not separately reported), independently interpreting results (not separately reported), communicating results to the patient/family/caregiver, and care coordination (not separately reported). Janell Cruz APRN.[facility] 05-16-2023 History of Presen t illness Narrative Gale Powers 77 year old male who underwent right carotid endarterectomy with bovine patch angioplasty in April [address] Raza. He remains asymptomatic, with no s/s of TIA or stroke, including amaurosis fugax, slurred speech, facial drooping, or weakness in an extremity. He is compliant with his medications and he returns today for routine noninvasive follow-up. He is not on statin d/t allergy and no asa d/t warfarin. Former smoker having quit in 2001. We reviewed the symptoms of TIA/stroke including weakness or numbness in an extremity, slurred speech, facial droop, amaurosis fugax, and he does not have any symptoms. He understands that he/she should call or go to the ED should any of these symptoms develop and that delay could result in stroke. PAST MEDICAL HISTORY Diagnosis Date Atrial fibrillation (HCC) Carotid stenosis Dyspnea Hypertensive disorder Stenosis of right carotid artery 03/21/2017 PAST SURGICAL HISTORY Procedure Laterality Date APPENDECTOMY CAROTID ENDARTERECTOMY Left 2006 CAROTID ENDARTERECTOMY Right 05/12/2022 Current Outpatient Medications on File Prior to Visit Medication Sig MEDICATION, NON-DATABASE prostavive MEDICATION, NON-DATABASE Clinical Prostate MEDICATION, NON-DATABASE Assure 2 MEDICATION, NON-DATABASE Shield warfarin sodium (COUMADIN ORAL) Take 8 mg by mouth once daily. ASHWAGANDHA ROOT EXTRACT ORAL Take by mouth once daily. cyanocobalamin, vitamin B-12, (VITAMIN B12 ORAL) Take 1 tablet by mouth once daily. MEDICATION, NON-DATABASE Take by mouth once daily. circumin levothyroxine (SYNTHROID) 50 mcg tablet Take 50 mcg by mouth once daily. No current facility-administered medications on file prior to visit. ALLERGIES Allergen Reactions Elokcav-Mpj-Aei Red* Myalgia BP 126/70 (BP Site: Left Arm, BP Position: Sitting, BP Cuff Size: Large Adult) Pulse 82 Ht 5' 8 (1.727 m) Wt 190 lb 3.2 oz (86.3 kg) SpO2 99% BMI 28.92 kg/m PHYSICAL EXAM: General Appearance: Well appearing, alert, in no acute distress, well-hydrated, well nourished. Skin: Skin color, texture, turgor normal, no suspicious rashes or lesions. Head: Normocephalic, no masses, lesions, tenderness or abnormalities. Eyes: Anicteric sclera. Extraocular movements are intact. Ears: External ears normal, hearing is adequate. Neck: Supple, no bruits. Lungs: Breathing is easy and unlabored. Heart: Irreg without gallop or rubs. Extremities: No deformities, edema, skin discoloration, clubbing or cyanosis. Neurologic: Gait normal. Normal cognition and motor skills. Sensation and strength grossly intact. Current duplex findings: 05/09/23 R ICA 0-29%, psv 87 L ICA 0-29%, psv 92 ASSESSMENT/PLAN: (I65.23) Internal carotid artery stenosis, bilateral (primary encounter diagnosis), (Z98.890) History of left-sided carotid endarterectomy Comment: Asymptomatic and stable with patent R CEA and no progression of stenosis in B ICA on current US Plan: Continue current rx; Will repeat carotid US in 1 year FOLLOW-UP: Will follow-up with [facility] in 1 year after repeat carotid US. Pt encouraged to call with any questions or concerns. The patient is currently taking a statin: No. Reason: allergy The patient is currently taking aspirin: No. Reason: Warfarin I spent a total of 30 minutes on the date of the service which included preparing to see the patient, [id number] patient care, completing clinical documentation, obtaining and/or reviewing separately obtained history, performing a medically appropriate examination, counseling and educating the patient/family/caregiver, ordering medications, tests, or procedures, communicating with other HCPs (not separately reported), independently interpreting results (not separately reported), communicating results to the patient/family/caregiver, and care coordination (not separately reported). Janell Cruz APRN.[facility] documented in this encounter [facility] 05-16-2023 Instructions Janell Cruz APRN.CNP - 05/16/2023 2:45 PM EDT Information on Stroke: 1. F.A.S.T: F - Facial Droop A - Arms: Raise both arms, one arm will drift downward S - Speech: Slurred or strange sounds when speaking T - Time: Call 911 immediately 2. If you have new or worsening stroke symptoms: Call 911 3. Examples of symptoms: A. Sudden weakness or numbness B. Sudden difficulty seeing C. Sudden confusion or slurred speech D. Sudden problems with balance, coordination E. Sudden severe headache, with no known cause F. Difficulty swallowing 4. Know your personal risks for stroke: Age, sex, race, family history, high cholesterol, alcohol intake, weight, inactive lifestyle, carotid or coronary artery disease. 5. Can you make changes in your personal risks? How? 6. Know what medications you are taking to avoid another stroke. documented in this encounter [facility] 08-19-2022 Miscellaneous Notes Post op US looks good with right side wide open and still no significant narrowing in left side. Recommend repeat US @1 year and follow-up at that time. Janell Cruz APRN.CNP documented in this encounter [facility] 05-31-2022 Note HNO ID: [id number] Author: Janell Cruz APRN.CNP Service: ? Author Type: Nurse Practitioner Type: Progress Notes Filed: 05/31/2022 10:46 AM Note Text: Gale Powers 76 year old male S/P Right carotid endarterectomy PROCEDURE: R CEA by Dr. Raza DATE: 05/12/22 SUBJECTIVE: Gale Powers returns to the office today for post-op evaluation following his recent carotid surgery. Reports that he is doing well, though has some numbness down his neck along the incision. Denies incisional pain. No concern with swallow or voice. Admits that he has not been taking the baby asa daily, which he has declined to take for a long time now. EXAM: Neurological Exam: Normal; Awake, alert, oriented, pleasant, and appropriate; Strength and sensation grossly intact; Voice strong; Swallow intact; Smile symmetric; Tongue midline Right Neck Incision: Clean, dry, well approximated, and well healed; No edema, erythema, ecchymosis, or drainage Right Carotid Pulse: +2 ST: +2 IMPRESSION: Stable post op; OK to gradually resume more normal daily activities as tolerated over next couple of weeks; Numbness should improve over time, but may persist for 6 months or even a year; Incision will flatten out more over next few weeks, as sub-q sutures dissolve PLAN: Will call Des with results and recommendations following his post-op US. He is encouraged to call with any questions, problems, concerns, or changes The patient is currently taking a statin: No. Reason: patient refusal despite recommendations The patient is currently taking aspirin: No. Reason: patient refusal despite recommendations Janell Cruz APRN.CNP [facility] 05-31-2022 History of Presen t illness Narrative Gale Powers 76 year old male S/P Right carotid endarterectomy PROCEDURE: R CEA by Dr. Raza DATE: 05/12/22 SUBJECTIVE: Gale Powers returns to the office today for post-op evaluation following his recent carotid surgery. Reports that he is doing well, though has some numbness down his neck along the incision. Denies incisional pain. No concern with swallow or voice. Admits that he has not been taking the baby asa daily, which he has declined to take for a long time now. EXAM: Neurological Exam: Normal; Awake, alert, oriented, pleasant, and appropriate; Strength and sensation grossly intact; Voice strong; Swallow intact; Smile symmetric; Tongue midline Right Neck Incision: Clean, dry, well approximated, and well healed; No edema, erythema, ecchymosis, or drainage Right Carotid Pulse: +2 ST: +2 IMPRESSION: Stable post op; OK to gradually resume more normal daily activities as tolerated over next couple of weeks; Numbness should improve over time, but may persist for 6 months or even a year; Incision will flatten out more over next few weeks, as sub-q sutures dissolve PLAN: Will call Des with results and recommendations following his post-op US. He is encouraged to call with any questions, problems, concerns, or changes The patient is currently taking a statin: No. Reason: patient refusal despite recommendations The patient is currently taking aspirin: No. 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 Pt has no prior EKG in epic. Please review with anesthesia if necessary. Thanks! Patient has the following medical conditions which may affect kayleen-operative course Atrial Fibrillation - Pt states he is constantly in A fib. Is Anticoagulated with Coumadin. Follows cardiology Dr. Zelaya. Pt unsure when last OV was. HTN - Elevated in PST. Pt denies any associated symptoms. Pt instructed to f/u with PCP. EKG done in PST. Unconfirmed EKG shows A fib and septal infarct. No prior EKG to compare. documented in this encounter [facility] 04-27-2022 History and physical note HISTORY AND PHYSICAL EXAMINATION SERVICE DATE: 04/26/2022 SERVICE TIME: 10:19 AM PRIMARY CARE PHYSICIAN: Dorinda Caballero MD REASON FOR VISIT: Gale Powers is a 76 year old male who is scheduled for Procedure(s): ENDARTERECTOMY CAROTID ADULT (Right) at the request of Dr. Dannielle Raza for routine H&P. My final recommendation will be communicated back to the requesting physician by way of shared medical record or letter. Subjective The patient has the following: ACTIVE PROBLEM LIST Stenosis of Right Carotid Artery Stenosis of Right Internal Carotid Artery Chronic Atrial Fibrillation (Hcc) COVID-19 Immunization Status Overdue - COVID-19 VACCINE (1) Overdue - never done No completion, postpone, frequency change, or communication history exists for this topic. CHIEF COMPLAINT: Preoperative Examination HPI: Patient presents to [facility] for the above procedure. Pt states that he has 75-80% block of his right carotid artery. Pt states that it was recommended that he have the procedure done. Patient denies any other problems or concerns at this time. Risks and benefits of the procedure discussed by Surgeon and patient agreed to proceed with planned procedure. REVIEW OF SYSTEMS: General: No weight loss, malaise or fevers. Neurological: Negative for: headaches, seizures and strokes. Respiratory: Negative for: asthma, COPD, current cough, dyspnea, tobacco use and obstructive sleep apnea. Cardiovascular: Positive for: anticoagulation therapy, atrial fibrillation and hypertension Negative for: AICD/PPM, angina, CAD, chest pain, CHF, DVT/PE and hyperlipidemia. GI: Negative for: abdominal pain, nausea and vomiting. : Negative for: frequent urination, hematuria and urgency. Endocrine: Negative for: diabetes mellitus, hyperthyroidism and hypothyroidism. Hematology: Positive for: chronic anti-coagulation/platelet meds. Patient is on anti-coagulation/platelet medication(s): Coumadin. Negative for: anemia and bruises/bleeds easily. Oncology: No history of CA metastasis, chemo within 30 days, or radiotherapy within 90 days. No history of oncological symptoms or problems. Psych: Negative for: anxiety and depression. Musculoskeletal: Negative for joint pain or swelling, back pain or muscle pain. Skin: Negative for lesions, rash and itching. PAST MEDICAL HISTORY Diagnosis Date Atrial fibrillation (HCC) Carotid stenosis Dyspnea Hypertensive disorder Stenosis of right carotid artery 03/21/2017 PAST SURGICAL HISTORY Procedure Laterality Date CAROTID ENDARTERECTOMY Left 2006 FAMILY HISTORY Problem Relation Age of Onset Cancer Mother Stroke Father Social History Tobacco Use Smoking status: Former Smoker Types: Pipe, Cigars Smokeless tobacco: Never Used Vaping Use Vaping Use: Never used Substance Use Topics Alcohol use: Yes Comment: rare Drug use: No Prior to Admission medications as of 03/08/22 1125 Medication Sig Last Dose Taking levothyroxine (SYNTHROID) 50 mcg tablet Take 50 mcg by mouth once daily. warfarin (COUMADIN) 1 mg tablet Take 1 mg by mouth once daily. warfarin (COUMADIN) 6 mg tablet Take 7 mg by mouth once daily. No medication comments found. ALLERGIES No Known Allergies Objective PHYSICAL EXAM: General: alert and oriented and healthy appearance. Pertinent negatives noted - not distressed. Skin: normal color, no rash or lesions. HEENT: EOM intact and pupils equal round. Cardiovascular: Pulse characterized as irregular. Respiratory: normal breath sounds, no wheezes or crackles. No chest wall deformity or tenderness. Abdomen: bowel sounds present. Pertinent negatives noted - no abnormal bowel sounds. Extremities: no deformity, no edema or tenderness, no joint swelling or clubbing. Neurological: normal cognition and motor skills. Gait normal. No weakness or sensory deficit. PAIN ASSESSMENT: VITALS: There were no vitals taken for this visit. Diagnostic tests reviewed for today's visit: Lab Value Units Date High Low HB No results within date range. HCT No results within date range. WBC No results within date range. PLT No results within date range. NA 138 mmol/L 02/24/2022 144 136 K 4.7 mmol/L 02/24/2022 5.1 3.7 GLUC 84 mg/dL 02/24/2022 99 74 BUN 28 mg/dL 02/24/2022 24 9 CREAT 1.28 mg/dL 02/24/2022 1.22 0.73 PTSEC No results within date range. INR No results within date range. APTT No results within date range. ALT No results within date range. AST No results within date range. TBILI No results within date range. TSH No results within date range. Lab Value Units Date High Low HCGQT No results within date range. UHCG No results within date range. HCG, BODY* No results within date range. Lab Value Units Date High Low ABORHD No results within date range. ABSCREEN No results within date range. No results found for: HBA1C No results found for this or any previous visit (from the past 8760 hour(s)). No results found for this or any previous visit (from the past 63173 hour(s)). Assessment No problem-specific Assessment & Plan notes found for this encounter. Thrasher Activity Status Index: METS: Climb a flight of stairs or walk up a hill (5.50 METs) DASI Score: 5.5 Patient denies any chest pain or undue shortness of breath with the above physical activity. Clinical Frailty Scale: 3. Well, with treated comorbid disease STOP-Bang Score: Patient over 50 years old Male patient BMI less than or equal to 35 kg/m^2 STOP-Bang Score: 2 [id number] Score: Age: >=75 Sex: male [id number] Score: 2 ARISCAT Score: Age: 51-80 Preoperative SpO2: >=96% Respiratory infection in the last month: No Preoperative anemia: No Surgical incision: peripheral Duration of surgery: 2-3 hrs Emergency procedure: No ARISCAT Score: 19 ANESTHESIA FINDINGS: Intubation History: No history of difficult intubation. No abnormal airway history Significant Anesthesia Considerations: none Airway History: No history of difficult airway No abnormal airway history I - PHYSICAL EVALUATION DENTAL Dental findings: teeth intact and missing tooth/teeth. II - ANESTHESIA PLAN Anesthetic Plan: general Prepared for Surgery: CONSULTS: The following consults have been initiated at this time: cardiology (03/18/22 in scanned docs in emids). Planned Anesthetic: general The Following Tests/Procedures Have Been Initiated: No orders of the defined types were placed in this encounter. Implantable Devices: None Patient has the following medical conditions which may affect kayleen-operative course Atrial Fibrillation - Pt states he is constantly in A fib. Is Anticoagulated with Coumadin. Follows cardiology Dr. Zelaya. Pt unsure of last OV visit. HTN - Elevated in PST. Pt denies any associated symptoms. Pt instructed to f/u with PCP. EKG done in PST. Unconfirmed EKG shows A fib and septal infarct. No prior EKG to compare. Pt instructed to contact surgeon and prescribing provider for instructions regarding blood thinners. The Following Tests/Procedures Have Been Initiated: CBC, BMP, PT, ECG, COVID testing ordered per surgeon. Assessment/Plan Stenosis of right internal carotid artery [I65.21] PLAN Diagnosis: Planned Procedure: Procedure(s): ENDARTERECTOMY CAROTID ADULT (Right) Instructions Given to Patient: Instructions located in the after visit summary. Patient given verbal and written preop instructions and voices comprehension and compliance. SIGNATURE: CHERRI Kearns PATIENT NAME: Gale Powers DATE: April 26, 2022 TIME: 10:19 AM PAGER/CONTACT #: documented in this encounter [facility] 04-27-2022 Instructions CHERRI Kearns - 04/27/2022 10:00 AM EDT PATIENT PREOPERATIVE INSTRUCTIONS Your surgeon has scheduled for your procedure at this surgery center: [facility]: [phone], [address] [id number] Please enter through the main entrance and proceed to the blue elevators. The surgery [place] [facility] is located to the left of the blue elevator. Please read below carefully for your personalized instructions. Arrival Time for Surgery: DATE: 05/12/22 OR TIME: 1:45PM CHECK IN TIME: 11:45AM Please be aware that emergency situations arise, which may delay or change your surgical time. If this happens, we will notify you as soon as possible and regret any inconvenience. Requirement for Vaccinations : 72-hour period between getting vaccine and date of surgery. Dietary Restrictions: - Nothing to eat after midnight. You may have 12 ounces of clear liquids ( water, Gatorade, apple juice, carbonated beverage, clear tea or black coffee) until 4 hours before your surgery. This is important because if you do, your surgery may have to be cancelled Blood Thinning Medications: - Stop NSAIDS (Ibuprofen, Advil, Aleve, Motrin, Celebrex, Mobic, etc.) 7 days before surgery, as directed by your surgeon. You may take Tylenol (Acetaminophen) or any of your pain medications that do not contain aspirin or NSAIDS as needed. IF YOU TAKE ANY OF THE FOLLOWING BLOOD THINNERS, PLEASE CONTACT YOUR SURGEON AND THE PHYSICIAN WHO PRESCRIBES IT FOR YOU IN ORDER TO GET PERIOPERATIVE INSTRUCTIONS SOON POSSIBLE. BLOOD THINNERS: Aspirin , Coumadin, Plavix, Eliquis, Pradaxa, Xarelto, Lovenox, Brilinta, Effient, Savaysa, Arixtra, etc - Stop Vitamin E, fish oil, multivitamins, Marijuana, CBD oil and other over the counter herbals and dietary supplements 7 days before surgery. -This would not apply to cancer patients who are prescribed Marinol or any other prescription form on marijuana or CBD. -exception Dr. Brown and Dr. Khan want their patients npo at midnight. Medications: Approved medications to take the morning of surgery with a sip of water: BP, HCTZ, Heart, thyroid, psych, seizure, and pain medications excluding NSAIDS. Use inhalers as prescribed. Please bring inhalers. Diabetes Please follow up with the provider that manages your diabetes and how to prepare you for surgery. If you are taking the following medications for Type 2 diabetes: Canagliflozin (INVOKANA), dapagliflozin (FARXIGA), and empagliflozin (JARDIANCE) should each be discontinued at least 3 days before scheduled surgery. Ertugliflozin (STEGLATRO) should be discontinued at least four days before scheduled surgery. Bring your Glucometer to [facility] if you are scheduled in [place] for [place]. If you have a stimulator, implant or pump that requires a remote please bring the remote with you day of surgery. Erectile dysfunction: If you take any medications for erectile dysfunction- Cialis (Tadalafil), Levitra, Staxyn, (Vardenafil), Viagra (Sildenenafil). Please do not take these for 48 hours before surgery. Pain Medications: Tylenol for pain as needed and if you are not allergic to. Medications to be taken with small amount of fluid on the morning of surgery: If you start any new medications after today's visit, please contact the surgeon's office. Important Reminders: - If you use CPAP/BIPAP, bring the machine with you to the surgery center. - If you are prescribed inhalers for breathing, continue using them AND bring them to the surgery center. - Candy, mints, gum and tobacco products are NOT permitted the morning of surgery. - Hearing aids, dentures and glasses may be worn the morning of surgery. - NO jewelry, body piercings, makeup, hairpins or contacts are to be worn the day of surgery. -Oral hygiene and a shower or bath is required the evening before or the morning of surgery. Use the Slicethepiens body wash supplied to you along with the instruction. - NO lotion, creams, powders or deodorants on the skin the day of surgery -Wear loose, comfortable clothing that will accommodate bandages. -Your length of stay will be determined by your surgeon - You will need to have someone else (Family or friend) drive you home once discharged from the hospital. You are not allowed to drive yourself home after surgery. - YOU MUST HAVE A RESPONSIBLE EQUITY RESEARCH ASSOCIATE TAKE YOU HOME. A TRANSIT OPERATOR, CAB OR UBER EQUITY RESEARCH ASSOCIATE CANNOT BE MADE A RESPONSIBLE EQUITY RESEARCH ASSOCIATE. - We recommend that a responsible person stays with you overnight to take care of you. - You cannot stay in a hotel alone after outpatient surgery. You will not be permitted to have your surgery, if you do not have someone to take care of you. CCAG: Given COVID 19 pandemic, one visitor is allowed in the hospital. They may wait in the surgery waiting room while you are in surgery but must wear a mask. Only one visitor will be permitted to visit you while your admitted after surgery. If you develop symptoms such as a fever, cold, or flu, or have other changes to your health within TWO DAYS of scheduled surgery or the morning of surgery, please contact the surgery center above. Personal Belongings: - Leave ALL valuables and money at home or with family members. - You will need a form of ID and insurance card to check in the morning of surgery. - You will have to wear a hospital gown during your stay but if you wish to bring undergarments for after surgery you may. Ambulatory surgery center [place]- orthopedic patients needing a walker should bring the walker into the building day of surgery. [facility] as outpatient should bring their walker into the building. Orthopedic patients having [facility] listed as to be admitted should leave their walkers in the car or with a family member. CHERRI Kearns 04/26/22 documented in this encounter [facility] 03-08-2022 Miscellaneous Notes Orders signed. Thank you, Janell Cruz APRN.[employer] documented in this encounter [facility] 03-08-2022 History of Presen t illness Narrative Gale Powers is a 76 year old male presents for follow-up evaluation of carotid ASO. He was previously seen by Dr. Orlando who performed a L CEA in 2006. Established care with Dr. Raza in 2020, following Dr. Roque's care home. He has a known significant stenosis of his R ICA which has been followed by CT. He does not take statin medications due to possible side effects, and he and his prefer him not to take daily asa (on Coumadin for a-fib). SYMPTOMS: Asymptomatic PATIENT'S CURRENT TREATMENT: Coumadin Not currently on asa or statin Patient does not have a history of a CVA. Patient had a Left Carotid Endarectomy done 2006 by [facility] R[facility]K FACTORS: Former smoker Hypertension Previous neck surgery TESTS: CT scan, date 02/28/22, results: 75-80% stenosis of R ICA, L ICA without stenosis CT scan, date 09/22/21, results: 75% stenosis of R ICA, L ICA without stenosis CT scan, date 03/01/21, results: 75% stenosis of R ICA, L ICA without stenosis HISTORIES: PAST MEDICAL HISTORY Diagnosis Date Atrial fibrillation (HCC) Carotid stenosis Dyspnea Hypertensive disorder Stenosis of right carotid artery 03/21/2017 PAST SURGICAL HISTORY Procedure Laterality Date CAROTID ENDARTERECTOMY Left 2006 Social History Tobacco Use Smoking status: Former Smoker Types: Pipe, Cigars Smokeless tobacco: Never Used Vaping Use Vaping Use: Never used Substance Use Topics Alcohol use: Yes Comment: rare Drug use: No MEDICATIONS: Current Outpatient Medications Medication Sig levothyroxine (SYNTHROID) 50 mcg tablet Take 50 mcg by mouth once daily. warfarin (COUMADIN) 1 mg tablet Take 1 mg by mouth once daily. warfarin (COUMADIN) 6 mg tablet Take 7 mg by mouth once daily. No current facility-administered medications for this visit. ALLERGIES: ALLERGIES No Known Allergies PHYSICAL EXAM: General appearance: Normal, healthy, well nourished, alert and cooperative individual, in no acute distress. Skin: No lesions, rashes or ulcerations; normal color and turgor. Head: Normocephalic, no masses, lesions, tenderness or abnormalities. Eyes: Anicteric sclera. Extraocular movements are intact. Ears: External ears normal, hearing is adequate. Neck: Supple, no bruits Pulmonary: Breathing is easy and unlabored Coronary: regular rate and regular rhythm Extremities: No deformities, edema, skin discoloration, clubbing or cyanosis. Good capillary refill. Neurologic: Gait normal. Sensation and strength grossly intact. IMPRESSION: Mr. 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 Previously, he and his have been very hesitent to have surgery, despite Dr. Raza's recommendation for intervention. He does not take a statin medication due to previous intolerance, and declines asa therapy. We again discussed that since he can not be maximally medically managed, surgery is a good option at this time. Pt is now in agreement with this recommendation, and would like to proceed with scheduling surgery (has many plans over next few months that he would like to keep, so he has list of potential surgery dates with him). In direct consultation with Dr. Raza, will proceed with scheduling R CEA. Will reach out to pt's office executive, Dr. Zelaya, for recommendation for Coumadin hold vs bridge, as he will need to hold for 5 days prior to surgery. PLAN: Pt agreeable to surgical intervention for stroke prevention at this time Declines asa & statin medications Reviewed s/s of TIA and stroke and advised calling 911 The patient is currently taking a statin: No. Reason: Declines The patient is currently taking aspirin: No. Reason: Declines I spent 20 minutes in the visit, with more than 50% of the total [id number] time of the visit in counseling / coordination of care. Janellchente Cruz APRN.LAURA documented in this encounter [facility] 02-28-2022 History of Presen t illness Narrative Radiology Service Progress Note DATE OF SERVICE: February 28, 2022 TIME: 10:05 AM PATIENT IDENTITY VERIFICATION COMPLETED USING TWO (2) STANDARD IDENTIFIERS: Name and Date of confirmed by patient verbally and Name and Date of confirmed by identification band. FALL SCREENING: Has the patient had 2 falls in the last year or 1 fall with injury or currently using an Ambulatory Assistive Device (Walker, Cane, Wheelchair, Crutches, etc.)? No PATIENT GENDER DATA: Male PATIENT RELEVANT IMPLANT DATA REVIEWED: Not Applicable ALLERGIES: Reviewed and unchanged CONTRAST ALLERGY: NO. EXAM: CT -CONTRAST INDUCED NEPHROPATHY RISK FACTORS: Patient age > 60 years CREATININE: Creatinine Date Value Ref Range Status 02/24/2022 1.28 (H) 0.73 - 1.22 mg/dL Final 09/20/2021 1.22 0.73 - 1.22 mg/dL Final 02/22/2021 1.18 0.73 - 1.22 mg/dL Final Estimated Glomerular Filtration Rate Date Value Ref Range Status 02/24/2022 58 (L) >=60 mL/min/1.73m Final Comment: Estimated Glomerular Filtration Rate (eGFR) is calculated using the 2020 CKD-EPI creatinine equation. This equation utilizes serum creatinine, sex, and age as parameters. The creatinine assay has traceable calibration to isotope dilution-mass spectrometry. Refer to KDIGO guidelines for clinical interpretation. In patients with unstable renal function, e.g. those with acute kidney injury, the eGFR may not accurately reflect actual GFR. eGFR- Date Value Ref Range Status 09/20/2021 >60 Final P.O.C.T. RESULTS: POC done: Yes, See Lab Tab February 28, 2022 TREATMENT: N/A PERIPHERAL IV DATA: Inpatient - refer to LDA documentation RADIOLOGY DEPARTMENT: CT; Exam(s) Completed: CTA Neck SIGNATURE: RT Kwame(R) PATIENT NAME: Gale Powers DATE: February 28, 2022 TIME: 10:05 AM documented in this encounter [facility] documented [facility] Diagnosis Stenosis of right internal carotid artery History of left-sided carotid endarterectomy Encounter for screening for cardiovascular disorders Screening for other and unspecified cardiovascular conditions documented in this encounter [facility] note* Diagnosis Stenosis of right internal carotid artery- Primary History of left-sided carotid endarterectomy Stenosis of right internal carotid artery documented in this encounter [facility] note* Diagnosis Stenosis of right internal carotid artery- Primary Stenosis of right internal carotid artery documented in this encounter [facility] note* Diagnosis Preop examination Preoperative examination, unspecified Stenosis of right internal carotid artery Hypertension, unspecified type Atrial fibrillation, unspecified type (HCC) Stenosis of right internal carotid artery documented in this encounter [facility] note* Diagnosis S/P carotid endarterectomy- Primary Other postprocedural status History of left-sided carotid endarterectomy Internal carotid artery stenosis, bilateral documented in this encounter [facility] note* Diagnosis S/P carotid endarterectomy- Primary Other postprocedural status History of left-sided carotid endarterectomy Internal carotid artery stenosis, bilateral documented in this encounter [facility] note* Diagnosis Internal carotid artery stenosis, bilateral- Primary History of left-sided carotid endarterectomy documented in this encounter [facility] for referral (narrative)* Outpatient Procedure (Routine) - Pending Review Specialty Diagnoses / Procedures Referred By Isabella vyas Ref[facility] Diagnoses Stenosis of right internal carotid artery Procedures ECG COMPLETE ECG ROUTINE ECG W/LEAST 12 LDS W/I&R Jnaell Cruz, SPOT CHECKER.RETAIL VISUAL MERCHANDISER 1 [facility] [address] [place] [address] [facility] [address] [place] [id number] Referral ID Status Reason Start Date Expiration Date Visits Requested Visits Authorized [id number] Pending Review Auto-Generat ed Referral 03/08/2022 03/08/2023 1 1 [facility] for referral (narrative)* Outpatient Procedure (Routine) - Pending Review Specialty Diagnoses / Procedures Referred By Contac t Referred To [facility] Diagnoses S/P carotid endarterectomy History of left-sided carotid endarterectomy Internal carotid artery stenosis, bilateral Procedures US CAROTID ARTERIES [facility] DUPLEX SCAN EXTRACRANIAL ART COMPL BI STUDY Janell Cruz, SUMEET.RETAIL VISUAL MERCHANDISER [address] [facility] [address] [place] [address] [facility] [address] [place] [address] Referral ID Status Reason Start Date Expiration Date Visits Requested Visits Authorized [id number] Pending Review Auto-Generat ed Referral 07/10/2022 05/31/2023 1 1 [facility] Diagnostic Procedure Only (Routine) - Pending Review Specialty Diagnoses / Procedures [facility] Diagnoses S/P carotid endarterectomy History of left-sided carotid endarterectomy Internal carotid artery stenosis, bilateral Procedures US CAROTID BILAT Janell Cruz, SPOT CHECKER.RETAIL VISUAL MERCHANDISER [address] [facility] [address] [place] [address] Us Imaging Referral ID Status Reason Start Date Expiration Date Visits Requested Visits Authorized [id number] Pending Review Auto-Generat ed Referral 05/09/2023 09/18/2023 1 1 [facility] Summary Purpose Family History No Family History Records FoundNo Family History Records FoundNo Family History Records Found Advance Directives No Advanced Directives Records FoundDocuments on File Type Date Recorded 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 Advance Directive(s) 05/12/2022 11:50 AM Documents on File Type Date Recorded 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 Advance Directive(s) 05/12/2022 11:50 AM Reason for Referral Specialty Diagnoses / Procedures Referred By Contac t Referred To Contact CT IMAGING Diagnoses Stenosis of right internal carotid artery History of left-sided carotid endarterectomy Encounter for screening for cardiovascular disorders Procedures CTA NECK W IVCON CTA NECK, W/WO C, W/3D Janell Cruz, SPOT CHECKER.RETAIL VISUAL MERCHANDISER [address] [facility] [address] [place] [address] Ct Imaging Referral ID Status Reason Start Date Expiration Date V isits Requested Visits Authorized [id number] Closed Auto-Generate d Referral 02/13/2022 10/30/2022 1 1 Additional Source Comments (unrecognized sect ion and content) No Status Records FoundNo Status Records FoundNo Status Records Found INFORMATION SOURCE (unrecogn ized section and content) DATE CREATED AUTHOR AUTHOR'S ORGANIZ ATION 08/11/2022 [facility] DATE CREATED AUTHOR AUTHOR'S ORGANIZ ATION 05/19/2023 [facility] Source Comments (unrecognize d section and content) In the event this informatio n is protected by the Federal Confidentiality of Alcohol and Drug Abuse Patient Records regulations: The Federal rules restrict any use of the information to criminally investigate or prosecute any alcohol or drug abuse patient.[facility] the event this information is protected by the Federal Confidentiality of Alcohol and Drug Abuse Patient Records regulations: The Federal rules restrict any use of the information to criminally investigate or prosecute any alcohol or drug abuse patient.[facility] the event this information is protected by the Federal Confidentiality of Alcohol and Drug Abuse Patient Records regulations: The Federal rules restrict any use of the information to criminally investigate or prosecute any alcohol or drug abuse patient.[facility] the event this information is protected by the Federal Confidentiality of Alcohol and Drug Abuse Patient Records regulations: The Federal rules restrict any use of the information to criminally investigate or prosecute any alcohol or drug abuse patient.[facility] the event this information is protected by the Federal Confidentiality of Alcohol and Drug Abuse Patient Records regulations: The Federal rules restrict any use of the information to criminally investigate or prosecute any alcohol or drug abuse patient.[facility] the event this information is protected by the Federal Confidentiality of Alcohol and Drug Abuse Patient Records regulations: The Federal rules restrict any use of the information to criminally investigate or prosecute any alcohol or drug abuse patient.[facility] the event this information is protected by the Federal Confidentiality of Alcohol and Drug Abuse Patient Records regulations: The Federal rules restrict any use of the information to criminally investigate or prosecute any alcohol or drug abuse patient.[facility] the event this information is protected by the Federal Confidentiality of Alcohol and Drug Abuse Patient Records regulations: The Federal rules restrict any use of the information to criminally investigate or prosecute any alcohol or drug abuse patient.[facility] Care Teams (unrecognized sec tion and content) [facility] Floor Relationship Specialty Start Date End Date Dorinda Caballero PCP - General Family Practice 03/21/17 Garcia, Ryan S [address] [place] [id number] Cardiology 05/12/20 [employer] Floor Relationship Specialty Start Date End Date Dorinda Caballero PCP - General Family Practice 03/21/17 Garcia, Ryan S [address] [place] [address] Cardiology 05/12/20 [employer] Floor Relationship Specialty Start Date End Date Dorinda Caballero PCP - General Family Practice 03/21/17 Garcia, Ryan S [address] [place] [address] Cardiology 05/12/20 [employer] Floor Relationship Specialty Start Date End Date Dorinda Caballero PCP - General Family Practice 03/21/17 Garcia Ryan S [address] [place] [address] Cardiology 05/12/20 [facility] Floor Relationship Specialty Start Date End Date Dorinda Caballero PCP - General Family Practice 03/21/17 Garcia, Corolla S [address] [place] [address] Cardiology 05/12/20 [facility] Floor Relationship Specialty Start Date End Date Dorinda Caballero PCP - General Family Medicine 03/21/17 Garcia Ryan S [address] [place] [address] Cardiology 05/12/20 [facility] Floor Relationship Specialty Start Date End Date Dorinda Caballero PCP - General Family Medicine 03/21/17 Garcia, Corolla S [address] [place] [address] Cardiology 05/12/20 Reason for Visit (unrecogniz ed section and content) Referral ID Status Reason Start Date Expiration Date V isits Requested Visits Authorized [id number] Closed Auto-Generate d Referral 02/13/2022 10/30/2022 1 1 Reason Comments Carotid Stenosis f/u Reason Comments Schedule Surgery Reason Comments Post Op Rt CEA 05/06/28 Reason Comments Results Reason Comments Established Patient Follow Up Annual follow-up for carotid endarterectomy Stenosis Internal carotid art jame stenosis, bilateral FOR RECORDS PERTAINING TO PATIENTS WHO ARE OR HAVE BEEN ENROLLED IN A CHEMICAL DEPENDENCY/SUBSTANCEABUSE PROGRAM, SOME INFORMATION MAY BE OMITTED. This clinical summary was aggregated from multiple sources. Caution should be exercised in using it in the provision of clinical care. This summary normalizes information from multiple sources, and as a consequence, information in this document may materially change the coding, format and clinical context of patient data. In addition, data may be omitted in some cases. CLINICAL DECISIONS SHOULD BE BASED ON THE PRIMARY CLINICAL RECORDS. [facility] [employer] [facility]. provides no warranty or guarantee of the accuracy or completeness of information in this document.
== END | disposition home or self-care (01) ==
PROVIDERS: PCP Family Medicine; Referring Provider Nurse Practitioner Gerontology; Visit Provider Nurse Practitioner Gerontology
DX: I48.11 Longstanding persistent atrial fibrillation (principal); E85.4 Organ-limited amyloidosis; I68.0 Cerebral amyloid angiopathy
CPT/HCPCS: 93306

== ENCOUNTER → 2023-12-21 | Outpatient (CLI) | payer MEDICARE, SELFPAY ==
[2023-12-21 15:55] LABS: International Normalized Ratio 1.9; Prothrombin Time (Protime)PT. 21.8 SECONDS (11.7-14.9)
== END | disposition home or self-care (01) ==
LOC: MFPLAB 12:27
PROVIDERS: PCP Family Medicine; Visit Provider Internal Medicine Cardiovascular Disease
DX: I48.11 Longstanding persistent atrial fibrillation (principal); Z79.01 Long term (current) use of anticoagulants
CPT/HCPCS: 36415; 85610

== ENCOUNTER 2024-01-25 16:59 | Outpatient (RCR) | payer MEDICARE, SELFPAY ==
[2023-12-15 02:15] VITALS: BMI 29.2
[2024-01-25 18:07] LABS: International Normalized Ratio 2.9; Prothrombin Time (Protime)PT. 29.9 SECONDS (11.7-14.9)
== END 2024-02-13 21:58 | disposition home or self-care (01) ==
LOC: MTLAB 16:59
PROVIDERS: Family Provider Family Medicine; PCP Family Medicine; Referring Provider Internal Medicine Cardiovascular Disease; Visit Provider Internal Medicine Cardiovascular Disease
DX: I48.11 Longstanding persistent atrial fibrillation (principal); Z79.01 Long term (current) use of anticoagulants
CPT/HCPCS: 36415; 85610

== ENCOUNTER → 2024-02-06 | Outpatient (CLI) | payer MEDICARE, SELFPAY ==
--- NOTE | 2024-02-06 07:41 | MRI_ITS ---
EXAM: MR HEAD WITHOUT INTRAVENOUS CONTRAST CLINICAL INDICATION: follow-up amyloid angiopathy TECHNIQUE: Multiplanar and multisequence MR images of the brain were obtained without intravenous contrast. COMPARISON: MR Head dated 10/02/2023 FINDINGS: BRAIN AND EXTRA-AXIAL SPACES: Increased T2 signal intensity within the cerebral white matter suggestive of chronic microvascular change. Multiple small foci of susceptibility artifact within both cerebral hemispheres again noted. SELLA: Normal. Normal sella turcica, pituitary gland, infundibular stalk, optic chiasm and hypothalamus. AUDITORY SYSTEM: Normal. The internal auditory canals are patent. BONES/JOINTS: Intact calvarium. SINUSES: Unremarkable as visualized. Clear. MASTOID AIR CELLS: Unremarkable as visualized. Clear. ORBITS: Unremarkable as visualized. Both globes, extraocular muscles, optic nerves and retrobulbar fat appear unremarkable. VASCULATURE: Unremarkable as visualized. Normal flow voids in the major intracranial circulation. MRI/Brain without Contrast IMPRESSION: 1. No acute intracranial abnormality. 2. Stable senescent changes. Electronically Signed: Tito Brandt MD at 17:06 EDT ,
== END | disposition home or self-care (01) ==
LOC: MRI 07:36
PROVIDERS: PCP Family Medicine; Referring Provider Psychiatry & Neurology Neurology; Visit Provider Psychiatry & Neurology Neurology
DX: E85.4 Organ-limited amyloidosis (principal); I68.0 Cerebral amyloid angiopathy
CPT/HCPCS: 70551

== ENCOUNTER 2024-04-01 08:34 | Outpatient (RCR) | payer MEDICARE, SELFPAY ==
[2024-02-13 21:59] VITALS: BMI 29.2
[2024-04-01 10:12] LABS: International Normalized Ratio 1.1; Prothrombin Time (Protime)PT. 13.8 SECONDS (11.7-14.9)
[2024-04-01 11:41] LABS: Anion Gap 5 (5-15); BUN 23 mg/dL (7-18); BUN/Creat Ratio 17.2 RATIO (10-20); Calcium,Total 9.3 mg/dL (8.5-10.1); Chloride 106 mmol/L (98-107); Creatinine, Serum 1.34 mg/dL (0.70-1.30); EST Glomerular Filtration Rate 55 mL/min (>60); Est Glom Filt Rate - Afr Amer 66 mL/min (>60); Glucose 101 mg/dL (74-106); Potassium 4.1 mmol/L (3.5-5.1); Sodium Level 137 mmol/L (136-145)
== END 2024-04-01 18:00 | disposition home or self-care (01) ==
LOC: MTLAB 08:34
PROVIDERS: Family Provider Family Medicine; PCP Family Medicine; Referring Provider Internal Medicine Cardiovascular Disease; Visit Provider Internal Medicine Cardiovascular Disease
DX: I48.11 Longstanding persistent atrial fibrillation (principal); Z79.01 Long term (current) use of anticoagulants; Z95.818 Presence of other cardiac implants and grafts
CPT/HCPCS: 36415; 80048; 85610

== ENCOUNTER → 2024-07-31 | Outpatient (CLI) | payer MEDICARE, SELFPAY ==
[2024-07-31 17:58] LABS: AST(SGOT) 20 U/L (15-37); Alanine Aminotransfer ALT/SGPT 22 U/L (16-61); Albumin, Serum 3.7 g/dL (3.2-5.0); Alkaline Phosphatase 49 U/L (45-117); Bilirubin, Direct 0.21 mg/dL (0.00-0.30); Cholesterol 169 mg/dL (200); Globulin 3.3 g/dL (2.2-4.2); High Density Lipoprotein 53 mg/dL; Triglycerides 69 mg/dL; Very Low Density Lipoprotein 14 mg/dL (5-40)
== END | disposition home or self-care (01) ==
LOC: MTLAB 14:39
PROVIDERS: PCP Family Medicine; Referring Provider Nurse Practitioner Gerontology; Visit Provider Nurse Practitioner Gerontology
DX: E78.2 Mixed hyperlipidemia (principal)
CPT/HCPCS: 36415; 80061; 80076

== ENCOUNTER → 2025-03-15 | Outpatient (CLI) | payer MEDICARE, SELFPAY ==
[2025-03-15 12:28] LABS: ALB/GLOB Ratio 1.6 RATIO (0.9-2.4); AST(SGOT) 28 U/L (<=37); Alanine Aminotransfer ALT/SGPT 23 U/L (<=46); Albumin, Serum 4.2 g/dL (3.4-4.8); Alkaline Phosphatase 54 U/L (40-129); Anion Gap 9 (5-15); BUN 22 mg/dL (4-19); BUN/Creat Ratio 14.5 RATIO (10-20); Calcium,Total 9.3 mg/dL (7.6-11.0); Carbon Dioxide 25.9 mmol/L (21.0-32.0); Chloride 103 mmol/L (98-108); Cholesterol 204 mg/dL (<=200); Creatinine, Serum 1.52 mg/dL (0.70-1.20); EST Glomerular Filtration Rate 46 (>60); Globulin 2.6 g/dL (2.2-4.2); Glucose 100 mg/dL (70-99); High Density Lipoprotein 53 mg/dL; Low Density Lipoprotein Calc. 138 mg/dL; PSA,Total - Annual Screen 0.28 ng/mL (0.02-4.00); Potassium 4.7 mmol/L (3.3-5.1); Protein, Total 6.9 g/dL (5.9-8.4); Sodium Level 138 mmol/L (133-145); T3 Total - Triiodothyronine 0.73 ng/mL (0.80-2.00); Total Bilirubin 0.63 mg/dL (0.00-1.30); Triglycerides 67 mg/dL; Very Low Density Lipoprotein 13 mg/dL (5-40); cholesterol:hdl ratio screen 3.86
[2025-03-16 14:51] LABS: Free T3 2.8 pg/mL (2.18-3.98)
== END | disposition home or self-care (01) ==
LOC: LAB 10:45
PROVIDERS: PCP Family Medicine; Visit Provider Family Medicine
DX: Z00.00 Encounter for general adult medical examination without abnormal findings (principal); E03.9 Hypothyroidism, unspecified
CPT/HCPCS: 36415; 80053; 80061; 84153; 84439; 84443; 84480; 84481; G0103

== ENCOUNTER → 2025-10-07 | Outpatient (CLI) | payer MEDICARE, SELFPAY ==
--- NOTE | 2025-10-07 10:16 | MRI_ITS ---
PROCEDURE: BRAIN WITHOUT CONTRAST 10/07/2025 REASON FOR EXAM: FOLLOW-UP AMYLOID ANGIOPATHY TECHNIQUE: Procedure Code: MRIBR Modality: MR Procedure: BRAIN WITHOUT CONTRAST Multiplanar and multisequence images were obtained. COMPARISON: MRI brain August 02, 2023. FINDINGS: Brain: Foci of hyperintense signal on T2 and FLAIR which are nonspecific but most likely due to chronic small vessel ischemia. Parenchymal volume loss consistent with brain atrophy. No restricted diffusion. Numerous foci of susceptibility artifact in the brain consistent with amyloidosis chronic microhemorrhages. No acute hemorrhage. No mass-effect or midline shift. The orbits are unremarkable. The midline structures and craniocervical junctions are within normal limits. No ventriculomegaly. Ventricles: Consistent with the overall degree of cerebral atrophy. Major Intracranial Vessels: Patent Sinuses: Clear Mastoids: Clear MRI/Brain without Contrast IMPRESSION: No acute brain abnormalities. New numerous foci of susceptibility artifact in the brain consistent with amylo idosis chronic microhemorrhages. Brain atrophy and chronic white matter changes are stable. Reading Location: [id number]
== END | disposition home or self-care (01) ==
PROVIDERS: PCP Family Medicine; Referring Provider Psychiatry & Neurology Neurology; Visit Provider Psychiatry & Neurology Neurology
DX: E85.4 Organ-limited amyloidosis (principal); G20.A1 Parkinson's disease without dyskinesia, without mention of fluctuations; I68.0 Cerebral amyloid angiopathy
CPT/HCPCS: 70551